=== PATIENT | female | born 1990 | race Caucasian/White ===

== ENCOUNTER 2018-04-04 11:59 | Emergency (ER) | payer OTHER ==
[2018-04-04] MEDS ORDERED: SODIUM CHLORIDE 0.9% 2,000 ML IV STA (12:30)
[2018-04-04] MEDS ORDERED: cefTRIAXone IN SWFI 2,000 MG/20 ML SYRINGE IVP STA (12:30)
[2018-04-04] MEDS ORDERED: MORPHINE SULFATE 4 MG/ML SYRINGE IV STA (12:30)
[2018-04-04] MEDS ORDERED: ONDANSETRON 4 MG/2 ML VIAL IVP STA ×2 (12:30→15:00)
[2018-04-04] MEDS ORDERED: SODIUM CHLORIDE 0.9% 1,000 ML IV STA (12:30)
[2018-04-04 13:17] LABS: Appearance,Urine Cloudy (Clear); Bilirubin,Urine Negative (Negative); Blood,Urine Negative (Negative); Color,Urine Yellow; Glucose,Urine (UA) Negative (Negative); Ketones,Urine Negative (Negative); Leukocyte Esterase,Urine Moderate (Negative); Mucus,Urine Many /hpf; Nitrite,Urine Negative (Negative); Protein,Urine 1+ (Negative); RBC,Urine 8 /hpf (0-5); Specific Gravity,Urine 1.026 (1.001-1.035); Squamous Epithelial Cell,Urine 32 /hpf (0-4); Urobilinogen,Urine <2.0 mg/dL (<2.0); WBC,Urine 7 /hpf (0-5)
[2018-04-04 13:43] LABS: ALT 62 U/L (9-52); AST 36 U/L (14-36); Albumin 4.5 g/dL (3.5-5.0); Alkaline Phosphatase 86 U/L (38-126); Amylase 44 U/L (30-110); Anion Gap 15 mmol/L; Basophils % (A) 0 %; Blood Urea Nitrogen 9 mg/dL (7-17); Calcium 9.4 mg/dL (8.4-10.2); Carbon Dioxide 26 mmol/L (22-30); Chloride 97 mmol/L (98-107); Eosinophils % (A) 0 %; Glucose 96 mg/dL (74-99); HCT 37.9 % (34.0-46.0); Lipase 56 U/L (23-300); Lymphocytes # (A) 0.7 k/uL (1.0-4.8); Lymphocytes % (A) 7 %; MCH 22.7 pg (25.0-35.0); MCHC 31.7 g/dL (31.0-37.0); MCV 71.6 fL (80.0-100.0); Mean Platelet Volume 7.8; Microcytosis Moderate; Monocytes # (A) 0.3 k/uL (0-1.0); Monocytes % (A) 3 %; Neutrophils # (A) 9.4 k/uL (1.3-7.7); Neutrophils % (A) 89 %; Platelet Count 333 k/uL (150-450); Potassium 3.8 mmol/L (3.5-5.1); RDW 14.6 % (11.5-15.5); Sodium 138 mmol/L (137-145); Total Bilirubin 0.5 mg/dL (0.2-1.3); Total Protein 7.6 g/dL (6.3-8.2); WBC 10.6 k/uL (3.8-10.6)
--- NOTE | 2018-04-04 13:45 | XR ---
EXAMINATION TYPE: XR KUB , 2 VIEWS DATE OF EXAM ORDERED: 04/04/2018 HISTORY: abdominal pain. COMPARISON: Previous study dated 09/22/2014. FINDINGS: The lung bases are clear. Within the abdomen, the abdominal gas pattern is normal. There is no evidence of obstruction or free air. No unusual calcifications are seen. IMPRESSION: NO ACUTE INTRA-ABDOMINAL ABNORMALITY.
[2018-04-04] MEDS ORDERED: RX INFO: IV CONTRAST WAS GIVEN 1 EACH MISC MISCELLANE PRN (13:53)
--- NOTE | 2018-04-04 14:15 | ED ---
Abdominal Pain HPI - General Chief Complaint: Abdominal Pain Stated Complaint: Abdominal pain Time Seen by Provider: 04/04/18 12:17 Source: patient Mode of arrival: ambulatory Limitations: no limitations - History of Present Illness Initial Comments: 27 years old female presents with abdominal pain pain is more so on the right upper quadrant area, epigastric and left upper quadrant area she also had a fever of 101 and she is quite tachycardic on arrival heart rate was 124 she is not complaining about chest pain or any pleuritic chest pain she also had diarrhea since last night she had the 8 loose stools since 5 PM yesterday vomited twice ,she is status post gallbladder surgery, she has a history of esophageal reflux disease she takes Prilosec for that she said she has been taking Prilosec religiously and has been taken or anxiety medication and depression Effexor as well. Review of system is otherwise unremarkable* - Related Data Home Medications Medication Instructions Recorded Confirmed Norethindrone AC-Eth Estradiol 1 tab PO DAILY 11/19/15 10/23/16 [Loestrin 21 1-20 Tablet] Lisinopril [Prinivil] 10 mg PO DAILY 10/23/16 10/23/16 Omeprazole 20 mg PO DAILY 10/23/16 10/23/16 Venlafaxine HCl ER [Effexor Xr] 150 mg PO DAILY 10/23/16 10/23/16 Previous Rx's Medication Instructions Recorded Ciprofloxacin HCl [Cipro] 500 mg PO Q12HR #14 tablet 04/04/18 Metoclopramide [Reglan] 10 mg PO ACHS #10 tab 04/04/18 Allergies Allergy/AdvReac Type Severity Reaction Status Date / Time Penicillins Allergy Rash/Hives Verified 04/04/18 12:17 Review of Systems ROS Statement: Those systems with pertinent positive or pertinent negative responses have been documented in the HPI. ROS Other: All systems not noted in ROS Statement are negative. Past Medical History Additional Past Medical History / Comment(s): Migraines History of Any Multi-Drug Resistant Organisms: MRSA Date of last positivie culture/infection: 05/18/16 MDRO Source:: RIGHT LEG Past Surgical History: Cholecystectomy Past Psychological History: Anxiety, Depression Smoking Status: Never smoker Past Alcohol Use History: Occasional Past Drug Use History: None Reported General Exam - General Exam Comments Initial Comments: General: The patient is awake and alert, in [id number] distress because of the abdominal pain Skin: Skin is warm and dry and no rashes or lesions are noted. Eye: Pupils are equal, round and reactive to light, extra-ocular movements are intact; there is normal conjunctiva bilaterally. Ears, nose, mouth and throat: There are moist mucous membranes and no oral lesions. Neck: The neck is supple, there is no tenderness or JVD. Cardiovascular: There is a regular rate and rhythm. No murmur, rub or gallop is appreciated. Respiratory: To auscultation bilateral, no wheezing no rhonchi no distress respiratory douglass noticed Gastrointestinal: Tender in the right upper quadrant area, epigastric area and left upper quadrant area Back: There is no tenderness to palpation in the midline. There is no obvious deformity. Musculoskeletal: Normal ROM, no tenderness, There is no pedal edema. There is no calf tenderness or swelling. No cords were appreciated. Neurological: CN II-XII intact, Cranial nerves III through XII are intact. There are no obvious motor or sensory deficits. Coordination appears grossly intact. Speech is normal. Psychiatric: Cooperative, appropriate mood & affect, normal judgment. Limitations: no limitations Course Vital Signs 04/04/18 04/04/18 12:14 14:47 Temperature 101.0 F H 100.8 F H Pulse Rate 124 H 110 H Respiratory 18 16 Rate Blood Pressure 129/85 156/87 O2 Sat by Pulse 100 99 Oximetry EKG is sinus tachycardia ventricular rate is 1 of 4 LA interval is 120 QRS duration is 80 QT/QTc is 340/447 review of this EKG shows some mom T-wave inversion in lead [address] elevation or ST depression noticed in the other leads Upon reassessment noticed that urinalysis is positive CBC is unremarkable surgery compressive metabolic panel she is not I KUB was unremarkable considering her severe pain and proceeded with the CT abdomen she was tender in the right upper quadrant area epigastric in the left upper quadrant area CT abdomen showed some mom metabolic stated ptosis oh and numb some collapse of the terminal ileum and now and ovarian cysts bilateral, she is not tender in the lower abdomen she is also tender on the flank area and there is a question of for a very high level causing the fever chills tachycardia and nausea. She was started on a Cipro 500 mg by mouth twice daily for next 10 days him on Reglan 10 mg by mouth every [address] Sales. She is advised come back if abdominal pain nausea vomiting and fever gets worse area this is also possibility of acute exacerbation of gastroesophageal reflux disease she will continue her PPIs and will advised her to increase the dose of the Prilosec and cysts if symptoms continue to bother hypertension Would be a good candidate for EGD she will follow with the Dr. Sales for the rate EGD if necessary Medical Decision Making - Lab Data Result diagrams: 04/04/18 13:15 04/04/18 13:15 Lab Results 04/04/18 04/04/18 04/04/18 Range/Units 13:05 13:05 13:15 WBC (3.8-10.6) k/uL RBC (3.80-5.40) m/uL Hgb (11.4-16.0) gm/dL Hct (34.0-46.0) % MCV (80.0-100.0) fL MCH (25.0-35.0) pg MCHC (31.0-37.0) g/dL RDW (11.5-15.5) % Plt Count (150-450) k/uL Neutrophils % % Lymphocytes % % Monocytes % % Eosinophils % % Basophils % % Neutrophils # (1.3-7.7) k/uL Lymphocytes # (1.0-4.8) k/uL Monocytes # (0-1.0) k/uL Eosinophils # (0-0.7) k/uL Basophils # (0-0.2) k/uL Microcytosis Sodium 138 (137-145) mmol/L Potassium 3.8 (3.5-5.1) mmol/L Chloride 97 L (98-107) mmol/L Carbon Dioxide 26 (22-30) mmol/L Anion Gap 15 mmol/L BUN 9 (7-17) mg/dL Creatinine 0.71 (0.52-1.04) mg/dL Est GFR (CKD-EPI)AfAm >90 (>60 ml/min/1.73 sqM) Est GFR (CKD-EPI)NonAf >90 (>60 ml/min/1.73 sqM) Glucose 96 (74-99) mg/dL Plasma Lactic Acid Mu (0.7-2.0) mmol/L Calcium 9.4 (8.4-10.2) mg/dL Total Bilirubin 0.5 (0.2-1.3) mg/dL AST 36 (14-36) U/L ALT 62 H (9-52) U/L Alkaline Phosphatase 86 (38-126) U/L Total Protein 7.6 (6.3-8.2) g/dL Albumin 4.5 (3.5-5.0) g/dL Amylase 44 (30-110) U/L Lipase 56 (23-300) U/L Urine Color Yellow Urine Appearance Cloudy H (Clear) Urine pH 6.0 (5.0-8.0) Ur Specific [place] 1.026 (1.001-1.035) Urine Protein 1+ H (Negative) Urine Glucose (UA) Negative (Negative) Urine Ketones Negative (Negative) Urine Blood Negative (Negative) Urine Nitrite Negative (Negative) Urine Bilirubin Negative (Negative) Urine Urobilinogen <2.0 (<2.0) mg/dL Ur Leukocyte Esterase Moderate H (Negative) Urine RBC 8 H (0-5) /hpf Urine WBC 7 H (0-5) /hpf Ur Squamous Epith Cells 32 H (0-4) /hpf Urine Mucus Many H (None) /hpf Urine HCG, Qual Not Detected (Not Detectd) 04/04/18 04/04/18 Range/Units 13:15 13:15 WBC 10.6 (3.8-10.6) k/uL RBC 5.30 (3.80-5.40) m/uL Hgb 12.0 (11.4-16.0) gm/dL Hct 37.9 (34.0-46.0) % MCV 71.6 L (80.0-100.0) fL MCH 22.7 L (25.0-35.0) pg MCHC 31.7 (31.0-37.0) g/dL RDW 14.6 (11.5-15.5) % Plt Count 333 (150-450) k/uL Neutrophils % 89 % Lymphocytes % 7 % Monocytes % 3 % Eosinophils % 0 % Basophils % 0 % Neutrophils # 9.4 H (1.3-7.7) k/uL Lymphocytes # 0.7 L (1.0-4.8) k/uL Monocytes # 0.3 (0-1.0) k/uL Eosinophils # 0.0 (0-0.7) k/uL Basophils # 0.0 (0-0.2) k/uL Microcytosis Moderate Sodium (137-145) mmol/L Potassium (3.5-5.1) mmol/L Chloride (98-107) mmol/L Carbon Dioxide (22-30) mmol/L Anion Gap mmol/L BUN (7-17) mg/dL Creatinine (0.52-1.04) mg/dL Est GFR (CKD-EPI)AfAm (>60 ml/min/1.73 sqM) Est GFR (CKD-EPI)NonAf (>60 ml/min/1.73 sqM) Glucose (74-99) mg/dL Plasma Lactic Acid Mu 1.0 (0.7-2.0) mmol/L Calcium (8.4-10.2) mg/dL Total Bilirubin (0.2-1.3) mg/dL AST (14-36) U/L ALT (9-52) U/L Alkaline Phosphatase (38-126) U/L Total Protein (6.3-8.2) g/dL Albumin (3.5-5.0) g/dL Amylase (30-110) U/L Lipase (23-300) U/L Urine Color Urine Appearance (Clear) Urine pH (5.0-8.0) Ur Specific [place] (1.001-1.035) Urine Protein (Negative) Urine Glucose (UA) (Negative) Urine Ketones (Negative) Urine Blood (Negative) Urine Nitrite (Negative) Urine Bilirubin (Negative) Urine Urobilinogen (<2.0) mg/dL Ur Leukocyte Esterase (Negative) Urine RBC (0-5) /hpf Urine WBC (0-5) /hpf Ur Squamous Epith Cells (0-4) /hpf Urine Mucus (None) /hpf Urine HCG, Qual (Not Detectd) Disposition Clinical Impression: Fever, Tachycardia, Abdominal pain, Hepatic steatosis, Ovarian cyst, Pyelonephritis Disposition: HOME SELF-CARE Condition: Good Instructions: Abdominal Pain (ED) Prescriptions: Ciprofloxacin HCl [Cipro] 500 mg PO Q12HR #14 tablet Metoclopramide [Reglan] 10 mg PO ACHS #10 tab Is patient prescribed a controlled substance at d/c from ED?: No If prescribed controlled substance>3 days was MAPS reviewed?: No When asked, does pt state using other controlled substances?: No Referrals: Souphis,Simon, DO [Primary Care Provider] - 1-2 days
--- NOTE | 2018-04-04 14:50 | CT ---
EXAMINATION TYPE: CT abdomen pelvis w con DATE OF EXAM: 04/04/2018 HISTORY: Patient complains of epigastric pain, nausea, vomiting, and diarrhea. CT DLP: 1989mGycm Automated Exposure Control for Dose Reduction was Utilized. CONTRAST: CT scan of the abdomen and pelvis is performed with IV Contrast, patient injected with 100 mL of Isov ue 370. COMPARISON: None. FINDINGS: LUNG BASES: There is minimal bibasilar subsegmental dependent atelectasis. LIVER/GB: There is diffuse hypoattenuation of the hepatic parenchyma, most commonly related to hepati c steatosis. More focal geographic wedge-shaped area of hypoattenuation is seen near the fissure for the falciform ligament. Gallbladder appears surgically absent without radiopaque clips in the gallbla dder fossa. PANCREAS: No significant abnormality is seen. No ductal dilatation. No abnormal enhancement. SPLEEN: No significant abnormality is seen. Small splenules are present in the campo spleen. ADRENALS: No nodularity or thickening is seen. KIDNEYS: No hydronephrosis or nephrolithiasis. Kidneys enhance symmetrically. BOWEL: The appendix is within normal limits of size without periappendiceal fat stranding. Terminal i leum is decompressed, limiting evaluation for focal thickening as does the lack of oral contrast. No evidence of dilated large or small bowel. UTERUS/ADNEXA: Low-attenuation in the endometrium likely relates to the phase of menses. Right adnexa l lesion measures 3.6 cm and left measures 2.6 cm. LYMPH NODES: No greater than 1cm abdominal or pelvic lymph nodes are appreciated. OSSEOUS STRUCTURES: No significant abnormality is seen. OTHER: There is small fat filled umbilical hernia is present. IMPRESSION: 1. Bilateral adnexal lesions measuring 3.6 on the right and 2.6 on the left. These may relate to ovar frieda cysts. If there is further concern, ultrasound could be performed. 2. No CT evidence of appendicitis or bowel obstruction. 3. Hepatic steatosis.
[2018-04-04] MEDS ORDERED: MORPHINE SULFATE 4 MG/ML SYRINGE IVP STA (15:00)
[2018-04-04] MEDS ORDERED: ACETAMINOPHEN TAB 500 MG TAB PO STA (15:00)
[2018-04-04] MEDS ORDERED: PANTOPRAZOLE 40 MG/10 ML VIAL IVP STA (15:01)
[2018-04-04 16:12] VITALS: BP 147/72; PULSE 105; RESP 18; TEMP 99.4
== END 2018-04-04 15:52 | disposition home or self-care (01) ==
LOC: EC 11:59
DX: N12 Tubulo-interstitial nephritis, not specified as acute or chronic (principal); N83.209 Unspecified ovarian cyst, unspecified side; K76.0 Fatty (change of) liver, not elsewhere classified; R00.0 Tachycardia, unspecified; K21.9 Gastro-esophageal reflux disease without esophagitis; F32.9 Major depressive disorder, single episode, unspecified; F41.9 Anxiety disorder, unspecified; Z79.3 Long term (current) use of hormonal contraceptives; Z79.899 Other long term (current) drug therapy; Z88.0 Allergy status to penicillin; Z86.14 Personal history of Methicillin resistant Staphylococcus aureus infection; Z90.49 Acquired absence of other specified parts of digestive tract
CPT/HCPCS: 99284; 96374; 96375 ×3; 96376 ×2; 96361 ×3; 36415; 80053; 82150; 83605; 83690; 85025; 81001; 81025; 87040; 74018; 74177; J2270; J2405; J0696; C9113; Q9967

== ENCOUNTER 2019-11-14 19:46 | Emergency (ER) | payer BC, OTHER ==
[2019-11-14] MEDS ORDERED: LABETALOL 5 MG/ML VIAL MDV IVP STA (20:46)
[2019-11-14 21:16] LABS: Anisocytosis Slight; Basophils # (A) 0.1 k/uL (0-0.2); Basophils % (A) 1 %; Eosinophils # (A) 0.1 k/uL (0-0.7); Eosinophils % (A) 1 %; HGB 10.2 gm/dL (11.4-16.0); Hypochromasia Slight; Lymphocytes # (A) 2.7 k/uL (1.0-4.8); Lymphocytes % (A) 27 %; MCH 21.3 pg (25.0-35.0); MCHC 30.9 g/dL (31.0-37.0); MCV 68.9 fL (80.0-100.0); Mean Platelet Volume 9.4; Microcytosis Marked; Monocytes # (A) 0.4 k/uL (0-1.0); Monocytes % (A) 4 %; Neutrophils # (A) 6.4 k/uL (1.3-7.7); Neutrophils % (A) 65 %; Platelet Count 256 k/uL (150-450); RBC 4.79 m/uL (3.80-5.40); RDW 16.4 % (11.5-15.5); WBC 9.9 k/uL (3.8-10.6)
[2019-11-14 21:25] LABS: ALT 16 U/L (4-34); AST 22 U/L (14-36); African American GFR (CKD) >90 (>60 ml/min/1.73 sqM); Albumin 3.9 g/dL (3.5-5.0); Alkaline Phosphatase 73 U/L (38-126); Anion Gap 9 mmol/L; Blood Urea Nitrogen 6 mg/dL (7-17); Calcium 9.9 mg/dL (8.4-10.2); Carbon Dioxide 23 mmol/L (22-30); Chloride 103 mmol/L (98-107); Glucose 94 mg/dL (74-99); Non-African American GFR(CKD) >90 (>60 ml/min/1.73 sqM); Potassium 3.6 mmol/L (3.5-5.1); Sodium 135 mmol/L (137-145); Total Bilirubin 0.4 mg/dL (0.2-1.3); Total Protein 7.2 g/dL (6.3-8.2)
[2019-11-14 21:27] LABS: INR 0.9 (<1.2); Partial Thromboplastin Time 23.2 sec (22.0-30.0); Prothrombin Time 9.7 sec (9.0-12.0)
[2019-11-14 21:42] LABS: HCG,Quantitative Serum 11845.6 mIU/mL
[2019-11-14 21:52] VITALS: TEMP 99.2
--- NOTE | 2019-11-14 21:56 | ED ---
Female Urogenital HPI - General Chief complaint: Urogenital Stated complaint: Vaginal Bleeding-18 wks Time Seen by Provider: 11/14/19 20:32 Source: patient Mode of arrival: ambulatory Limitations: no limitations - History of Present Illness Initial comments: 29-year-old female history of hypertension currently not on medications presents today for chief complaint of vaginal bleeding and . patient is currently 18 weeks and sees [employer] Dr. Simon. She states that yesterday evening she had "rough sex". She states she is not bleeding at that time however about an hour prior to arrival she felt like she tightness in the lower abdomen and began to have mild to moderate vaginal bleeding. She states this is bright red. Patient states she also thought she was lifting heavier exact work than she should have. Patient denies any direct abdominal trauma. Patient denies any severe abdominal pain or back pain. Patient denies any nausea vomiting fevers dysuria urgency frequency extremity edema headaches visual changes or any other complaints. Patient appears well on arrival, but slightly anxious stating she is nervous she is bleeding. She is found to have initial elevated BP reading. - Related Data Home Medications Medication Instructions Recorded Confirmed Norethindrone AC-Eth Estradiol 1 tab PO DAILY 11/19/15 10/23/16 [Loestrin 21 1-20 Tablet] Lisinopril [Prinivil] 10 mg PO DAILY 10/23/16 10/23/16 Omeprazole 20 mg PO DAILY 10/23/16 10/23/16 Venlafaxine HCl ER [Effexor Xr] 150 mg PO DAILY 10/23/16 10/23/16 Previous Rx's Medication Instructions Recorded Ciprofloxacin HCl [Cipro] 500 mg PO Q12HR #14 tablet 04/04/18 Metoclopramide [Reglan] 10 mg PO ACHS #10 tab 04/04/18 Labetalol [Trandate] 100 mg PO BID 7 Days #14 tablet 11/14/19 Allergies Allergy/AdvReac Type Severity Reaction Status Date / Time Penicillins Allergy Rash/Hives Verified 11/14/19 19:54 Review of Systems ROS Statement: Those systems with pertinent positive or pertinent negative responses have been documented in the HPI. ROS Other: All systems not noted in ROS Statement are negative. Past Medical History Additional Past Medical History / Comment(s): Migraines History of Any Multi-Drug Resistant Organisms: MRSA Date of last positivie culture/infection: 05/18/16 MDRO Source:: RIGHT LEG Past Surgical History: Cholecystectomy Past Psychological History: Anxiety, Depression Smoking Status: Never smoker Past Alcohol Use History: Occasional Past Drug Use History: None Reported General Exam - General Exam Comments Initial Comments: General: The patient is awake and alert, in no distress Eye: +3 mm pupils are equal, round and reactive to light, extra-ocular movements are intact. No nystagmus. There is normal conjunctiva bilaterally. No signs of icterus. Ears, nose, mouth and throat: There are moist mucous membranes and no oral lesions. Neck: The neck is supple, there is no tenderness or JVD. Cardiovascular: There is a regular rate and rhythm. No murmur, rub or gallop is appreciated. Respiratory: Lungs are clear to auscultation, respirations are non-labored, breath sounds are equal. No wheezes, stridor, rales, or rhonchi. Gastrointestinal: Soft, non-distended, non-tender abdomen without masses or organomegaly noted. There is no rebound or guarding present. Pelvic, os closed. No cerival motion or adnexal tenderness. Scant amount of bright red blood no severe bleeding noted. appears mild. Musculoskeletal: Normal ROM, no tenderness. Strength 5/5. Sensation intact. Radial pulses equal bilaterally 2+. Neurological: A&O x 3. CN II-XII intact, There are no obvious motor or sensory deficits. Coordination appears grossly intact. Speech is normal. Skin: Skin is warm and dry and no rashes or lesions are noted. No extremity edema. Psychiatric: Cooperative, appropriate mood & affect, normal judgment. Limitations: no limitations Course Vital Signs 11/14/19 11/14/19 11/14/19 19:50 20:56 21:51 Temperature 97.7 F 99.2 F Pulse Rate 108 H 89 Respiratory 18 18 Rate Blood Pressure 170/123 149/96 147/91 O2 Sat by Pulse 100 96 Oximetry 11/14/19 11/14/19 22:19 22:43 Temperature Pulse Rate 77 Respiratory 16 Rate Blood Pressure 131/84 139/81 O2 Sat by Pulse 100 Oximetry Medical Decision Making - Medical Decision Making 29-year-old female presents emergency department for vaginal bleeding. Patient is found to have elevated blood pressure. Patient states she does have history of elevated blood pressure in the past. I contacted patient [employer] prior to results stating reason for visit discussing blood pressure. He recommended if it remained elevated to give labetalol 100 mg by mouth. Patient blood pressure reduced to 130/84. Patient denies pain, pelvic mild bleeding. US no complicating process of . Labs reveal mild decreased in HgB discussed this as well as protein in urine with [employer], platelets normal, BP normalized. He recommended that patient have pelvic rest as we feel sex may be a cause of bleeding. I discussed the importance of blood pressure management and recommend patient obtained cough Dr. Simon recommend patient be prescribed labetalol 100 mg by mouth twice a day as needed for elevated blood pressure. She is to follow-up in office for anatomy scan as scheduled next week. Return parameters including increasing or worsening vaginal bleeding or pelvic pain were discussed at length the patient verbalized understanding and was discharged appearing well. Case discussed with attending Dr. Wilson - Lab Data Result diagrams: 11/14/19 20:52 11/14/19 20:52 Lab Results 11/14/19 11/14/19 11/14/19 Range/Units 20:52 20:52 20:52 WBC 9.9 (3.8-10.6) k/uL RBC 4.79 (3.80-5.40) m/uL Hgb 10.2 L (11.4-16.0) gm/dL Hct 33.0 L (34.0-46.0) % MCV 68.9 L (80.0-100.0) fL MCH 21.3 L (25.0-35.0) pg MCHC 30.9 L (31.0-37.0) g/dL RDW 16.4 H (11.5-15.5) % Plt Count 256 (150-450) k/uL Neutrophils % 65 % Lymphocytes % 27 % Monocytes % 4 % Eosinophils % 1 % Basophils % 1 % Neutrophils # 6.4 (1.3-7.7) k/uL Lymphocytes # 2.7 (1.0-4.8) k/uL Monocytes # 0.4 (0-1.0) k/uL Eosinophils # 0.1 (0-0.7) k/uL Basophils # 0.1 (0-0.2) k/uL Hypochromasia Slight Anisocytosis Slight Microcytosis Marked PT (9.0-12.0) sec INR (<1.2) APTT (22.0-30.0) sec Sodium 135 L (137-145) mmol/L Potassium 3.6 (3.5-5.1) mmol/L Chloride 103 (98-107) mmol/L Carbon Dioxide 23 (22-30) mmol/L Anion Gap 9 mmol/L BUN 6 L (7-17) mg/dL Creatinine 0.59 (0.52-1.04) mg/dL Est GFR (CKD-EPI)AfAm >90 (>60 ml/min/1.73 sqM) Est GFR (CKD-EPI)NonAf >90 (>60 ml/min/1.73 sqM) Glucose 94 (74-99) mg/dL Calcium 9.9 (8.4-10.2) mg/dL Total Bilirubin 0.4 (0.2-1.3) mg/dL AST 22 (14-36) U/L ALT 16 (4-34) U/L Alkaline Phosphatase 73 (38-126) U/L Total Protein 7.2 (6.3-8.2) g/dL Albumin 3.9 (3.5-5.0) g/dL HCG, Quant 91127.6 mIU/mL Urine Color Urine Appearance (Clear) Urine pH (5.0-8.0) Ur Specific [place] (1.001-1.035) Urine Protein (Negative) Urine Glucose (UA) (Negative) Urine Ketones (Negative) Urine Blood (Negative) Urine Nitrite (Negative) Urine Bilirubin (Negative) Urine Urobilinogen (<2.0) mg/dL Ur Leukocyte Esterase (Negative) Urine RBC (0-5) /hpf Urine WBC (0-5) /hpf Ur Squamous Epith Cells (0-4) /hpf Urine Bacteria (None) /hpf Cellular Casts (0) /lpf Hyaline Casts (0-2) /lpf Granular Casts (0) /lpf Urine Mucus (None) /hpf Trichomonas Ag (Rapid) (Negative) Blood Type O Positive Blood Type Recheck O Pos Bld Type Recheck Status No 11/14/19 11/14/19 11/14/19 Range/Units 20:52 20:52 22:20 WBC (3.8-10.6) k/uL RBC (3.80-5.40) m/uL Hgb (11.4-16.0) gm/dL Hct (34.0-46.0) % MCV (80.0-100.0) fL MCH (25.0-35.0) pg MCHC (31.0-37.0) g/dL RDW (11.5-15.5) % Plt Count (150-450) k/uL Neutrophils % % Lymphocytes % % Monocytes % % Eosinophils % % Basophils % % Neutrophils # (1.3-7.7) k/uL Lymphocytes # (1.0-4.8) k/uL Monocytes # (0-1.0) k/uL Eosinophils # (0-0.7) k/uL Basophils # (0-0.2) k/uL Hypochromasia Anisocytosis Microcytosis PT 9.7 (9.0-12.0) sec INR 0.9 (<1.2) APTT 23.2 (22.0-30.0) sec Sodium (137-145) mmol/L Potassium (3.5-5.1) mmol/L Chloride (98-107) mmol/L Carbon Dioxide (22-30) mmol/L Anion Gap mmol/L BUN (7-17) mg/dL Creatinine (0.52-1.04) mg/dL Est GFR (CKD-EPI)AfAm (>60 ml/min/1.73 sqM) Est GFR (CKD-EPI)NonAf (>60 ml/min/1.73 sqM) Glucose (74-99) mg/dL Calcium (8.4-10.2) mg/dL Total Bilirubin (0.2-1.3) mg/dL AST (14-36) U/L ALT (4-34) U/L Alkaline Phosphatase (38-126) U/L Total Protein (6.3-8.2) g/dL Albumin (3.5-5.0) g/dL HCG, Quant mIU/mL Urine Color Yellow Urine Appearance Cloudy H (Clear) Urine pH 6.0 (5.0-8.0) Ur Specific [place] 1.031 (1.001-1.035) Urine Protein 2+ H (Negative) Urine Glucose (UA) Negative (Negative) Urine Ketones Trace H (Negative) Urine Blood Large H (Negative) Urine Nitrite Negative (Negative) Urine Bilirubin Negative (Negative) Urine Urobilinogen <2.0 (<2.0) mg/dL Ur Leukocyte Esterase Negative (Negative) Urine RBC 31 H (0-5) /hpf Urine WBC 6 H (0-5) /hpf Ur Squamous Epith Cells 10 H (0-4) /hpf Urine Bacteria Occasional H (None) /hpf Cellular Casts 2 (0) /lpf Hyaline Casts 2 (0-2) /lpf Granular Casts 5 (0) /lpf Urine Mucus Many H (None) /hpf Trichomonas Ag (Rapid) Negative (Negative) Blood Type Blood Type Recheck Bld Type Recheck Status Disposition Clinical Impression: Vaginal bleeding during , Elevated blood pressure reading Disposition: HOME SELF-CARE Condition: Good Instructions (If sedation given, give patient instructions): Threatened Miscarriage (ED), Non-Threatening First Trimester Vaginal Bleed (ED) Additional Instructions: Please use medication as discussed. Please follow-up with Dr. Covington next week, PELVIC REST-NO SEX. Please return to emergency room if the symptoms increase or worsen or for any other concerns-pain, increasing or persistent bleeding, headaches, extremity swelling. Prescriptions: Labetalol [Trandate] 100 mg PO BID 7 Days #14 tablet Is patient prescribed a controlled substance at d/c from ED?: No Referrals: Simon Sales DO [Primary Care Provider] - 1-2 days Nolberto Simon MD [STAFF PHYSICIAN] - 11/21/19 Time of Disposition: 22:28
[2019-11-14 21:57] LABS: Appearance,Urine Cloudy (Clear); Bacteria,Urine Occasional /hpf; Bilirubin,Urine Negative (Negative); Blood,Urine Large (Negative); Cellular Casts,Urine 2 /lpf (0); Color,Urine Yellow; Glucose,Urine (UA) Negative (Negative); Granular Casts,Urine 5 /lpf (0); Hyaline Casts,Urine 2 /lpf (0-2); Ketones,Urine Trace (Negative); Leukocyte Esterase,Urine Negative (Negative); Mucus,Urine Many /hpf; Nitrite,Urine Negative (Negative); Protein,Urine 2+ (Negative); RBC,Urine 31 /hpf (0-5); Specific Gravity,Urine 1.031 (1.001-1.035); Squamous Epithelial Cell,Urine 10 /hpf (0-4); Urobilinogen,Urine <2.0 mg/dL (<2.0); WBC,Urine 6 /hpf (0-5)
[2019-11-14] MEDS ORDERED: LABETALOL 100 MG TAB PO SCH (22:00)
--- NOTE | 2019-11-14 22:19 | US ---
EXAMINATION TYPE: US OB >= 14 wk fetus DATE OF EXAM: 11/14/2019 COMPARISON: CT 2018 CLINICAL HISTORY: bleeding in pregnancyBleeding in x 2.5 hours. . TECHNIQUE: Transabdominal (TA) GESTATIONAL AGE / DATING Physician Established: (18 weeks/3 days) EDC: 04/13/2020 Dates by LMP: Unknown Dates by First Scan: This is first scan Dates by Current Scan: (18 weeks/4 days) EDC: 04/12/2020 Beta HCG (if available): 11,845.6 SURVEY IUP: Single PLACENTA: Posterior PREVIA: Not seen JACOB: 14.53 cm Normal CERVICAL LENGTH (transabdominal: norm > 3.0cm): 3.95 cm BIOMETRY PRESENTATION: Breech BPD: 4.19 cm 18 weeks / 5 days HC: 15.87 cm 18 weeks / 5 days AC: 13.18 cm 18 weeks / 5 days FL: 2.80 cm 18 weeks / 4 days ESTIMATED WEIGHT IN GRAMS: 250.00 grams ESTIMATED WEIGHT IN LBS/OZ: 0 lbs. 9 oz. WEIGHT PERCENTAGE BASED ON ESTABLISHED DATES: 58.6% HC/AC: 1.20 Normal FL/AC: 21.21 HEART RATE: 158 bpm RHYTHM: Normal IMPRESSION: No complicating process seen.
[2019-11-14 22:47] VITALS: BP 139/81; PULSE 77; RESP 16
[2019-11-15 13:29] LABS: N. gonorrhoeae,PCR Negative (Neg,Equiv); Neisseria Source Vagina
[2019-11-15 13:58] LABS: C. trachomatis,PCR Negative (Neg,Equiv); Chlamydia trachomatis Source Vagina
== END 2019-11-14 22:48 | disposition home or self-care (01) ==
LOC: EC 19:46
DX: O46.92 Antepartum hemorrhage, unspecified, second trimester (principal); O99.89 Other specified diseases and conditions complicating pregnancy, childbirth and the puerperium; R03.0 Elevated blood-pressure reading, without diagnosis of hypertension; O12.12 Gestational proteinuria, second trimester; O99.342 Other mental disorders complicating pregnancy, second trimester; F41.9 Anxiety disorder, unspecified; F32.9 Major depressive disorder, single episode, unspecified; Z3A.18 18 weeks gestation of pregnancy; Z79.3 Long term (current) use of hormonal contraceptives; Z79.899 Other long term (current) drug therapy; Z88.0 Allergy status to penicillin; Z86.14 Personal history of Methicillin resistant Staphylococcus aureus infection
CPT/HCPCS: 36415; 76805; 80053; 81001; 84702; 85025; 85610; 85730; 86900; 86901; 87070; 87491; 87591; 87808; 99284

== ENCOUNTER 2020-03-06 08:45 | Outpatient (CLI) | payer BC ==
[2020-03-06] MEDS ORDERED: LABETALOL 5 MG/ML VIAL MDV IVP PRN ×3 (09:27)
[2020-03-06] MEDS ORDERED: hydrALAZINE HCL 20 MG/ML 1 ML VIAL IVP PRN (09:27)
[2020-03-06] MEDS ORDERED: LACTATED RINGERS 1,000 ML IV SCH (09:30)
[2020-03-06 10:03] LABS: Anisocytosis Slight; Basophils % (A) 0 %; Eosinophils # (A) 0.1 k/uL (0-0.7); Eosinophils % (A) 1 %; HGB 9.6 gm/dL (11.4-16.0); Hypochromasia Marked; Lymphocytes # (A) 1.7 k/uL (1.0-4.8); Lymphocytes % (A) 19 %; MCH 20.8 pg (25.0-35.0); MCHC 30.8 g/dL (31.0-37.0); MCV 67.6 fL (80.0-100.0); Microcytosis Marked; Monocytes # (A) 0.4 k/uL (0-1.0); Monocytes % (A) 4 %; Neutrophils # (A) 6.7 k/uL (1.3-7.7); Neutrophils % (A) 75 %; Platelet Count 226 k/uL (150-450); RBC 4.59 m/uL (3.80-5.40)
[2020-03-06 10:11] LABS: ALT 16 U/L (4-34); AST 43 U/L (14-36); African American GFR (CKD) >90 (>60 ml/min/1.73 sqM); Blood Urea Nitrogen 12 mg/dL (7-17); LDH 930 U/L (313-618); Non-African American GFR(CKD) >90 (>60 ml/min/1.73 sqM); Uric Acid 6.2 mg/dL (3.7-7.4)
[2020-03-06 10:13] LABS: Appearance,Urine Cloudy (Clear); Bacteria,Urine Occasional /hpf; Bilirubin,Urine Negative (Negative); Blood,Urine Small (Negative); Color,Urine Light Red; Glucose,Urine (UA) Negative (Negative); Ketones,Urine Negative (Negative); Leukocyte Esterase,Urine Negative (Negative); Mucus,Urine Many /hpf; Nitrite,Urine Negative (Negative); PH, Urine 6.5 (5.0-8.0); Protein,Urine 4+ (Negative); RBC,Urine 4 /hpf (0-5); Squamous Epithelial Cell,Urine 34 /hpf (0-4); Urobilinogen,Urine <2.0 mg/dL (<2.0); WBC,Urine 23 /hpf (0-5)
[2020-03-06] MEDS ORDERED: MAGNESIUM SULFATE-WATER PMX 4 GM in WATER FOR INJECTION 1 100ML.BAG IVPB ONE (10:30)
[2020-03-06] MEDS ORDERED: MAGNESIUM SULFATE-WATER PMX 20 GM in WATER FOR INJECTION 1 500ML.BAG IV SCH (10:30)
[2020-03-06] MEDS ORDERED: BETAMET ACET-BETAMETH SOD PHOS 6 MG/ML VIAL IM SCH (10:45)
[2020-03-06 11:37] VITALS: BP 197/123; PULSE 74; RESP 16; TEMP 97.2
--- NOTE | 2020-03-06 11:45 | P.HPOB ---
History of Present Illness H&P Date: 03/06/20 Chief Complaint: 34-4/7 weeks, preeclampsia with severe features The patient is a 29-year-old 1 para 0 admitted at 34-4/7 weeks by good dating parameters. She is admitted to triage with complaints of contractions at which time she was found with the opening blood pressure of approximately 190/123. Contractions were occasional and there was no signs or symptoms of labor. Heart tones were category 1 and reassuring. She required 3 subsequent doses of labetalol to bring her pressure into a more reasonable range. Laboratory workup demonstrated an elevated LDH, elevated AST, and 4+ protein in her urine. Platelet count was within normal limits. Given these findings, the diagnosis of preeclampsia was severe features was made and the patient was started with betamethasone 12.5 mg intramuscularly to be repeated in 24 hours as well as magnesium sulfate, 4 g IV loading dose followed by 2 g per hour. Arrangements have been made to transfer the patient to a tertiary care center for concerns. The patient's cervix has found to be closed and thick. She was found at her 19 week ultrasound to have a reasonably large placental Rojas has been undergoing testing with weekly NSTs since 32 weeks, all of which have been category 1 and reassuring. Obstetrical history: 1 para 0 with current statistics listed in history of present illness. Please refer to the record for EDC and how it was determined as well as all laboratory workup. Gynecologic history: Unremarkable with no history of any infections to include STDs. Review of Systems Review of systems is confined to history of present illness. Past Medical History Additional Past Medical History / Comment(s): Migraines History of Any Multi-Drug Resistant Organisms: MRSA Date of last positivie culture/infection: 05/18/16 MDRO Source:: RIGHT LEG Past Surgical History: Cholecystectomy Smoking Status: Never smoker Medications and Allergies Home Medications Medication Instructions Recorded Confirmed Type Omeprazole 20 mg PO DAILY 10/23/16 03/06/20 History Venlafaxine HCl ER [Effexor Xr] 150 mg PO DAILY 10/23/16 03/06/20 History metFORMIN HCL [Glucophage] 1 tab PO DAILY 03/06/20 03/06/20 History Allergies Allergy/AdvReac Type Severity Reaction Status Date / Time Penicillins Allergy Rash/Hives Verified 03/06/20 09:24 Exam Vital Signs Temp Pulse Resp BP 03/06/20 08:54 97.2 F L 74 16 197/123 Intake and Output 03/05/20 03/06/20 03/06/20 22:59 06:59 14:59 Other: Weight 113.398 kg In general, this is a mild to moderately obese white female in no acute distress. Her heart has a regular rhythm and rate without murmur. Her lungs are clear to auscultation bilaterally in all moss. Her abdomen is gravid, nondistended, has normal active bowel sounds, soft, nontender, and without any palpable masses aside from uterine fundus. Her extremities are without any cyanosis, clubbing, or significant edema and are nontender to palpation bilaterally. Deep tendon reflexes are relatively within normal limits. Digital cervical examination performed by the nursing staff demonstrates her cervix to be closed, thick, and high with the vertex in presentation. Results Result Diagrams: 03/06/20 09:42 03/06/20 09:42 Abnormal Lab Results - Last 24 Hours (Table) 03/06/20 03/06/20 03/06/20 Range/Units 09:42 09:42 09:42 Hgb 9.6 L (11.4-16.0) gm/dL Hct 31.0 L (34.0-46.0) % MCV 67.6 L (80.0-100.0) fL MCH 20.8 L (25.0-35.0) pg MCHC 30.8 L (31.0-37.0) g/dL RDW 17.0 H (11.5-15.5) % Fibrinogen 626 H (200-500) mg/dL AST 43 H (14-36) U/L Lactate Dehydrogenase 930 H (313-618) U/L Urine Appearance (Clear) Ur Specific [place] (1.001-1.035) Urine Protein (Negative) Urine Blood (Negative) Urine WBC (0-5) /hpf Ur Squamous Epith Cells (0-4) /hpf Urine Bacteria (None) /hpf Urine Mucus (None) /hpf 03/06/20 Range/Units 09:54 Hgb (11.4-16.0) gm/dL Hct (34.0-46.0) % MCV (80.0-100.0) fL MCH (25.0-35.0) pg MCHC (31.0-37.0) g/dL RDW (11.5-15.5) % Fibrinogen (200-500) mg/dL AST (14-36) U/L Lactate Dehydrogenase (313-618) U/L Urine Appearance Cloudy H (Clear) Ur Specific [place] 1.050 H (1.001-1.035) Urine Protein 4+ H (Negative) Urine Blood Small H (Negative) Urine WBC 23 H (0-5) /hpf Ur Squamous Epith Cells 34 H (0-4) /hpf Urine Bacteria Occasional H (None) /hpf Urine Mucus Many H (None) /hpf Assessment and Plan (1) Preeclampsia Current Visit: Yes Status: Acute Code(s): O14.90 - UNSPECIFIED PRE- ECLAMPSIA, UNSPECIFIED TRIMESTER SNOMED Code(s): 248828775 (2) with 34 completed weeks gestation Current Visit: Yes Status: Acute Code(s): Z3A.34 - 34 WEEKS GESTATION OF SNOMED Code(s): 35030685 Plan: I had a long discussion with the patient and her partner regarding the diagnosis and the likely need for delivery within the next 24-48 hours. As our pediatric unit cannot manage infants under 35 weeks of gestation, the patient requires transfer to a tertiary care center. As noted above, magnesium sulfate has been started for seizure prophylaxis as well as neuro protection for the fetus. Additionally she has had the first dose of betamethasone. A Hand catheter has been placed to carefully track input and output. I have discussed the case with at [facility] [place] in [place] who has accepted the transfer. Preparations are being made at this time for transfer by ambulance.
== END 2020-03-06 12:17 ==
LOC: FBPOP 08:45
PROVIDERS: ATTEND Obstetrics & Gynecology
DX: O14.93 Unspecified pre-eclampsia, third trimester (principal); Z3A.34 34 weeks gestation of pregnancy; Z79.899 Other long term (current) drug therapy; Z79.52 Long term (current) use of systemic steroids; Z79.84 Long term (current) use of oral hypoglycemic drugs; Z88.0 Allergy status to penicillin
CPT/HCPCS: 59025; 99215; 96365; 96366; 96367; 96375; 82570; 84156; 82565; 83615; 84450; 84460; 84520; 84550; 85025; 85384; 81001; J0702; J3475 ×2

== ENCOUNTER 2020-06-07 15:44 | Emergency (ER) | payer BC ==
[2020-06-07 15:49] VITALS: RESP 18; TEMP 98.8
[2020-06-07] MEDS ORDERED: hydrALAZINE HCL 20 MG/ML 1 ML VIAL IVP STA (16:18)
[2020-06-07] MEDS ORDERED: hydrALAZINE HCL 50 MG TAB PO STA (16:28)
--- NOTE | 2020-06-07 16:36 | ED ---
General Adult HPI - General Chief complaint: Headache Stated complaint: Hypertension Time Seen by Provider: 06/07/20 16:01 Source: patient, family Mode of arrival: ambulatory Limitations: no limitations - History of Present Illness Initial comments: Patient is a 29-year-old female presenting to the emergency room with a chief complaint of high blood pressure. Patient states she is 3 months and about 1.5 months ago she was taken off her blood pressure medication, Procardia, by her OB, Dr Covington. Patient states her PCP was not aware of this. Patient states she has been on blood pressure medication for several years prior to this. States she was on Procardia during her as well. States she went to her PCP today after she developed a headache yesterday. She had a systolic blood pressure of 170 and was advised to come to the emergency department. Patient does have history of migraines and this one feels somewhat like it. Although, patient denies photophobia but does report nausea. She states this is a left-sided headache. This was a gradual onset is not the worst headache of her life. Patient denies any abdominal pain, chest pain, shortness of breath or hematuria. States she is going back to see her primary care in 1 week.. - Related Data Home Medications Medication Instructions Recorded Confirmed Omeprazole 20 mg PO DAILY 10/23/16 06/08/20 Norethindrone-E.estradiol-Iron 1 tab PO DAILY 06/07/20 06/08/20 [Junel Fe 24 Tablet] Venlafaxine HCl [Effexor XR] 37.5 mg PO DAILY 06/07/20 06/08/20 Previous Rx's Medication Instructions Recorded NIFEdipine XL [Procardia Xl] 60 mg PO DAILY #30 tab 06/07/20 Allergies Allergy/AdvReac Type Severity Reaction Status Date / Time Penicillins Allergy Rash/Hives Verified 06/08/20 14:00 Review of Systems ROS Statement: Those systems with pertinent positive or pertinent negative responses have been documented in the HPI. ROS Other: All systems not noted in ROS Statement are negative. Past Medical History Additional Past Medical History / Comment(s): Migraines, pre eclampsia History of Any Multi-Drug Resistant Organisms: MRSA Date of last positivie culture/infection: 05/18/16 MDRO Source:: RIGHT LEG Past Surgical History: Section, Cholecystectomy Past Psychological History: Anxiety, Depression Smoking Status: Never smoker Past Alcohol Use History: Occasional Past Drug Use History: None Reported General Exam Limitations: no limitations General appearance: alert, in no apparent distress, obese Head exam: Present: atraumatic, normocephalic, normal inspection Eye exam: Present: normal appearance, PERRL, EOMI Pupils: Present: normal accommodation ENT exam: Present: normal exam, normal oropharynx, mucous membranes moist, TM's normal bilaterally, normal external ear exam Neck exam: Present: normal inspection, full ROM. Absent: tenderness Respiratory exam: Present: normal lung sounds bilaterally. Absent: respiratory distress, wheezes Course Vital Signs 06/07/20 06/07/20 06/07/20 15:46 16:13 16:58 Temperature 98.8 F Pulse Rate 84 88 81 Respiratory 18 18 18 Rate Blood Pressure 179/104 178/107 147/102 O2 Sat by Pulse 100 100 99 Oximetry 06/07/20 06/07/20 06/07/20 17:00 17:30 17:53 Temperature Pulse Rate 88 Respiratory 18 18 Rate Blood Pressure 147/102 150/104 145/93 O2 Sat by Pulse 100 100 99 Oximetry EKG Findings - EKG Comments: EKG Findings:: Sinus rhythm, inverted T waves. Ventricular rate 66, IL 132, QRS 80, QTC 415. Medical Decision Making - Medical Decision Making Patient is 29-year-old female presenting to the emergency department with a chief complaint of high blood pressure. She does have history headaches and is not the worst headache of her life. On initial evaluation, patient has blood pressure in the 160 systolic. EKG shows sinus rhythm with inverted T waves in lead 3, although this appears unchanged from an EKG from 2 years ago. I suspect the hypertension is secondary to her stopping the Procardia 1.5 months ago. Patient was given 50 mg of hydralazine by mouth in the ED. Will be discharged with a 2 week course of Procardia, at her previously prescribed regimen. She is set to follow up with her PCP, Dr. Sales in one week. Case was discussed with Dr. Wilson. Return parameters were thoroughly discussed with patient is understanding and agreeable. Disposition Clinical Impression: Headache, Hypertension Disposition: HOME SELF-CARE Condition: Stable Instructions (If sedation given, give patient instructions): Hypertension (ED) Additional Instructions: Take prescribed medication as directed. Follow up with your primary care. Return to emergency department if symptoms worsen. Prescriptions: NIFEdipine XL [Procardia Xl] 60 mg PO DAILY #30 tab Is patient prescribed a controlled substance at d/c from ED?: No Referrals: Simon Sales DO [Primary Care Provider] - 1-2 days Time of Disposition: 17:00
[2020-06-07] MEDS ORDERED: KETOROLAC 30 MG/ML 1 ML VIAL IM STA (17:02)
[2020-06-07 17:54] VITALS: BP 145/93; PULSE 88
== END 2020-06-07 17:53 | disposition home or self-care (01) ==
LOC: EC 15:44
DX: I10 Essential (primary) hypertension (principal); R11.0 Nausea; F32.9 Major depressive disorder, single episode, unspecified; F41.9 Anxiety disorder, unspecified; Z79.899 Other long term (current) drug therapy; Z88.0 Allergy status to penicillin; Z86.14 Personal history of Methicillin resistant Staphylococcus aureus infection
CPT/HCPCS: 93005; 96372; 99283; J1885

== ENCOUNTER 2020-06-08 13:10 | Emergency (ER) | payer BC ==
[2020-06-08 13:14] VITALS: TEMP 97.9
[2020-06-08] MEDS ORDERED: ONDANSETRON 4 MG/2 ML VIAL IVP STA (13:49)
[2020-06-08] MEDS ORDERED: SODIUM CHLORIDE 0.9% 1,000 ML IV STA (13:49)
[2020-06-08] MEDS ORDERED: KETOROLAC 30 MG/ML 1 ML VIAL IVP STA (13:49)
[2020-06-08] MEDS ORDERED: diphenhydrAMINE 50 MG/ML 1 ML VIAL IVP STA (13:49)
--- NOTE | 2020-06-08 14:10 | ED ---
Headache HPI - General Chief Complaint: Headache Stated Complaint: Migraine Time Seen by Provider: 06/08/20 13:24 Mode of arrival: ambulatory Limitations: no limitations - History of Present Illness Initial Comments: Patient is a 29-year-old female with history of hypertension, 3 months , presenting to the emergency department for re-evaluation. Patient was seen in the ER yesterday and was evaluated for hypertension, having a migraine. Patient states she was restarted on her Procardia yesterday as she was off of it during the last 3 months. Patient states she woke up this morning still having a headache, nauseous, some mild dizziness. Patient states she does have a history of migraines. Patient was concerned and came back in to the ER. Patient denies having a fever, chills, blurry vision. She denies any vomiting, diarrhea, abdominal pain. She has no further complaints at this time. Upon arrival to the ER, her vital signs are stable, BP is 144/79. - Related Data Home Medications Medication Instructions Recorded Confirmed Omeprazole 20 mg PO DAILY 10/23/16 06/08/20 Norethindrone-E.estradiol-Iron 1 tab PO DAILY 06/07/20 06/08/20 [Junel Fe 24 Tablet] Venlafaxine HCl [Effexor XR] 37.5 mg PO DAILY 06/07/20 06/08/20 Previous Rx's Medication Instructions Recorded NIFEdipine XL [Procardia Xl] 60 mg PO DAILY #30 tab 06/07/20 Allergies Allergy/AdvReac Type Severity Reaction Status Date / Time Penicillins Allergy Rash/Hives Verified 06/08/20 14:00 Review of Systems ROS Statement: Those systems with pertinent positive or pertinent negative responses have been documented in the HPI. ROS Other: All systems not noted in ROS Statement are negative. Past Medical History Additional Past Medical History / Comment(s): Migraines, pre eclampsia History of Any Multi-Drug Resistant Organisms: MRSA Date of last positivie culture/infection: 05/18/16 MDRO Source:: RIGHT LEG Past Surgical History: Section, Cholecystectomy Past Psychological History: Anxiety, Depression Smoking Status: Never smoker Past Alcohol Use History: Occasional Past Drug Use History: None Reported General Exam - General Exam Comments Initial Comments: GENERAL: Well-appearing, well-nourished and in no acute distress. HEAD: Atraumatic, normocephalic. EYES: Pupils equal round and reactive to light, extraocular movements intact, sclera anicteric, conjunctiva are normal. ENT: TMs normal, nares patent, oropharynx clear without exudates. Moist mucous memb ranes. NECK: Normal range of motion, supple without lymphadenopathy or JVD. LUNGS: Breath sounds clear to auscultation bilaterally and equal. No wheezes rales or rhonchi. HEART: Regular rate and rhythm without murmurs, rubs or gallops. ABDOMEN: Soft, nontender, normoactive bowel sounds. No guarding, no rebound. No masses appreciated. : Deferred EXTREMITIES: Normal range of motion, no pitting or edema. No clubbing or cyanosis. Strength is 5 out of 5 upper and lower extremities bilaterally, sensation is equal in bilateral upper and lower extremities. NEUROLOGICAL: Cranial nerves II through XII grossly intact. Normal speech, normal gait. PSYCH: Normal mood, normal affect. SKIN: Warm, Dry, normal turgor, no rashes or lesions noted. Limitations: no limitations Course Vital Signs 06/08/20 13:12 Temperature 97.9 F Pulse Rate 93 Respiratory 20 Rate Blood Pressure 144/79 O2 Sat by Pulse 99 Oximetry Medical Decision Making - Medical Decision Making Patient is a 29-year-old female here for a headache that started again this mo rning. Patient was seen in the ER yesterday for hypertension, she was restarted on her Procardia. She states her blood pressure is better however she started having a headache again today. Patient's vital signs are stable. Her exam is unremarkable, no neuro deficits. Patient was given some fluids, pain control, Benadryl and Zofran. She reports improvement in her symptoms. Patient is stable for discharge. I recommended trying Excedrin Extra Strength at home for future headaches as well as continue to increase her fluids. Patient will follow up with her PCP. This plan of care. Return parameters were discussed with the patient she verbalized understanding. Case discussed with Dr. Siegel. - Lab Data Lab Results 06/08/20 06/08/20 Range/Units 14:26 14:26 Urine Color Light Yellow Urine Appearance Cloudy H (Clear) Urine pH 7.0 (5.0-8.0) Ur Specific [place] 1.006 (1.001-1.035) Urine Protein Negative (Negative) Urine Glucose (UA) Negative (Negative) Urine Ketones Negative (Negative) Urine Blood Negative (Negative) Urine Nitrite Negative (Negative) Urine Bilirubin Negative (Negative) Urine Urobilinogen <2.0 (<2.0) mg/dL Ur Leukocyte Esterase Moderate H (Negative) Urine RBC <1 (0-5) /hpf Urine WBC 4 (0-5) /hpf Ur Squamous Epith Cells 17 H (0-4) /hpf Urine Bacteria Moderate H (None) /hpf Urine Mucus Rare H (None) /hpf Urine HCG, Qual Not Detected (Not Detectd) Disposition Clinical Impression: Headache Disposition: HOME SELF-CARE Condition: Stable Instructions (If sedation given, give patient instructions): Acute Headache (ED) Additional Instructions: Please return to the Emergency Department if symptoms worsen or any other concerns. Trial of Excedrin Extra Strength for future headaches or alternating between Tylenol and Motrin. Follow-up with PCP. Is patient prescribed a controlled substance at d/c from ED?: No Referrals: Simon Sales DO [Primary Care Provider] - 1-2 days
[2020-06-08 15:08] LABS: Appearance,Urine Cloudy (Clear); Bacteria,Urine Moderate /hpf; Bilirubin,Urine Negative (Negative); Blood,Urine Negative (Negative); Color,Urine Light Yellow; Glucose,Urine (UA) Negative (Negative); Ketones,Urine Negative (Negative); Leukocyte Esterase,Urine Moderate (Negative); Mucus,Urine Rare /hpf; Nitrite,Urine Negative (Negative); Protein,Urine Negative (Negative); RBC,Urine <1 /hpf (0-5); Specific Gravity,Urine 1.006 (1.001-1.035); Squamous Epithelial Cell,Urine 17 /hpf (0-4); Urobilinogen,Urine <2.0 mg/dL (<2.0); WBC,Urine 4 /hpf (0-5)
[2020-06-08 16:15] VITALS: BP 135/78; PULSE 74; RESP 18
== END 2020-06-08 16:10 | disposition home or self-care (01) ==
LOC: EC 13:10
DX: R51 Headache (principal); I10 Essential (primary) hypertension; R42 Dizziness and giddiness; R11.0 Nausea; F41.9 Anxiety disorder, unspecified; F32.9 Major depressive disorder, single episode, unspecified; Z79.899 Other long term (current) drug therapy; Z79.3 Long term (current) use of hormonal contraceptives; Z88.0 Allergy status to penicillin; Z86.69 Personal history of other diseases of the nervous system and sense organs; Z86.14 Personal history of Methicillin resistant Staphylococcus aureus infection
CPT/HCPCS: 81001; 81025; 99283; 96374; 96375 ×2; 96361; J1200; J2405; J1885

== ENCOUNTER → 2020-08-31 | Outpatient (CLI) | payer BC | END | disposition home or self-care (01) | LOC: LABWHC1 09:57 | PROVIDERS: ATTEND Family Medicine | DX: Z20.828 Contact with and (suspected) exposure to other viral communicable diseases (principal) | CPT/HCPCS: U0003; C9803 ==

== ENCOUNTER 2021-05-27 | Emergency (ER) | payer BC | END 2021-05-27 22:09 | disposition home or self-care (01) ==

== ENCOUNTER 2023-06-03 17:50 | Emergency (ER) | payer BC ==
[2023-06-03 18:24] VITALS: TEMP 98.6
[2023-06-03 20:19] LABS: ALT 44 U/L (4-34); AST 31 U/L (14-36); African American GFR (CKD) >90 (>60 ml/min/1.73 sqM); Alkaline Phosphatase 90 U/L (38-126); Anion Gap 9 mmol/L; Blood Urea Nitrogen 7 mg/dL (7-17); Calcium 8.8 mg/dL (8.4-10.2); Carbon Dioxide 28 mmol/L (22-30); Chloride 101 mmol/L (98-107); Glucose 114 mg/dL (74-99); Non-African American GFR(CKD) >90 (>60 ml/min/1.73 sqM); Potassium 3.7 mmol/L (3.5-5.1); Sodium 138 mmol/L (137-145); Total Bilirubin 0.4 mg/dL (0.2-1.3); Total Protein 7.2 g/dL (6.3-8.2)
[2023-06-03] MEDS ORDERED: LIDOCAINE/EPINEPHR/TETRACAINE 5 ML BOTTLE TOPICAL ONE (20:30)
--- NOTE | 2023-06-03 20:42 | XR ---
EXAMINATION TYPE: XR elbow complete LT DATE OF EXAM: 06/03/2023 8:21 PM INDICATION: Patient age:Female; 32 years old; Reason for study: cellulitis; PHH. COMPARISON: None TECHNIQUE: The left elbow was examined in AP, lateral, and oblique projections. FINDINGS: No evidence of any acute osseous pathology, joint dislocation,. Soft tissue swelling involv ing the dorsal proximal forearm and dorsal distal arm. No evidence of joint effusion is present. IMPRESSION: No evidence of acute fracture. Soft tissue swelling predominantly posteriorly correlate for cellulitis. No evidence for osseous eros ion.
--- NOTE | 2023-06-03 20:43 | ED ---
Skin/Abscess/FB HPI - General Chief complaint: Skin/Abscess/Foreign Body Stated complaint: L elbow Abccess Time Seen by Provider: 06/03/23 19:32 Source: patient Mode of arrival: ambulatory Limitations: no limitations - History of Present Illness Initial comments: Patient is a pleasant 32-year-old female presenting to the emergency room complaints of increased pain, redness, and swelling to her left elbow. She reports that she had a pimple-like lesion that developed on her left elbow approximately 4 days ago in which she did have some purulent drainage from and over the course of the last 4 days she has had an increase in surrounding redness and swelling stating that the abscess has stopped draining. She reports that she was concerned as in the past she has had abscesses that required intervention and IV antibiotics. She states that she has had a history of MRSA to her previous abscesses. She has not had an abscess in many years. She denies any range of motion impairment of her left elbow not directly related to swelling. She denies any systemic symptoms of infection including any chest pain, shortness of breath, nausea, vomiting, altered mental status, fatigue, weakness, fevers or chills. In addition to her history of previous skin abscesses with MRSA she has a past medical history significant for migraines. - Related Data Home Medications Medication Instructions Recorded Confirmed Omeprazole 20 mg PO DAILY 10/23/16 06/08/20 Venlafaxine HCl [Effexor XR] 37.5 mg PO DAILY 06/07/20 06/08/20 norethindrone-e.estradioL-iron 1 tab PO DAILY 06/07/20 06/08/20 [Junel Fe 24 Tablet] Previous Rx's Medication Instructions Recorded NIFEdipine XL [Procardia Xl] 60 mg PO DAILY #30 tab 06/07/20 clindamycin HCL [Cleocin] 300 mg PO Q6HR 10 Days #40 cap 06/03/23 Allergies Allergy/AdvReac Type Severity Reaction Status Date / Time Penicillins Allergy Rash/Hives Verified 06/03/23 18:24 Review of Systems ROS Statement: Those systems with pertinent positive or pertinent negative responses have been documented in the HPI. ROS Other: All systems not noted in ROS Statement are negative. Past Medical History Additional Past Medical History / Comment(s): Migraines, pre eclampsia History of Any Multi-Drug Resistant Organisms: MRSA Date of last positivie culture/infection: 05/18/16 MDRO Source:: RIGHT LEG Past Surgical History: Section, Cholecystectomy Past Psychological History: Anxiety, Depression Smoking Status: Never smoker Past Alcohol Use History: Occasional Past Drug Use History: None Reported General Exam Limitations: no limitations General appearance: alert, in no apparent distress Head exam: Present: atraumatic, normocephalic, normal inspection Eye exam: Present: normal appearance, PERRL, EOMI. Absent: scleral icterus, conjunctival injection, periorbital swelling ENT exam: Present: normal exam, mucous membranes moist Neck exam: Present: normal inspection, full ROM Respiratory exam: Absent: respiratory distress, accessory muscle use Cardiovascular Exam: Present: tachycardia (mild) GI/Abdominal exam: Present: soft. Absent: distended, tenderness, guarding, rebound, rigid Left Elbow exam: Present: tenderness, swelling, erythema. Absent: full ROM (limited by pain and swelling) Vascular: Absent: vascular compromise Back exam: Present: normal inspection Neurological exam: Present: alert, oriented X3, CN II-XII intact Psychiatric exam: Present: normal affect, normal mood Skin exam: Present: other (Abscess over the olecranon without drainage prior to I & D with surrounding induration including warmth, tenderness, and erythema total diameter appx 3.5 cm ) Course Vital Signs 06/03/23 06/03/23 18:22 22:34 Temperature 98.6 F Pulse Rate 116 H 94 Respiratory 22 18 Rate Blood Pressure 177/104 151/99 O2 Sat by Pulse 100 100 Oximetry Procedures - Incision & Drainage Consent Obtained: verbal consent Indication: Abscess Site: upper extremity (Left elbow) I&D Cleaning Method: Chloroprep Scalpel Used: #11 I&D Drainage Obtained: Pus, Blood Culture Obtained?: Yes Patient Tolerated Procedure: well, no complications Medical Decision Making - Medical Decision Making Was pt. sent in by a medical professional or institution (, PA, GLASS FURNACE TENDER, urgent care, hospital, or snf...) When possible be specific @ -No Did you speak to anyone other than the patient for history (EMS, parent, family, police, friend...)? What history was obtained from this source @ -No Did you review nursing and triage notes (agree or disagree)? Why? @ -I reviewed and agree with nursing and triage notes Were old charts reviewed (outside hosp., previous admission, EMS record, old EKG, old radiological studies, urgent care reports/EKG's, snf records)? Report findings @ -No old charts were reviewed Differential Diagnosis (chest pain, altered mental status, abdominal pain women, abdominal pain men, vaginal bleeding, weakness, fever, dyspnea, syncope, headache, dizziness, GI bleed, back pain, seizure, CVA, palpatations, mental health, musculoskeletal)? @ -Not applicable EKG interpreted by me (3pts min.). @ -None done X-rays interpreted by me (1pt min.). @ -X-ray left elbow: No fracture, dislocation or osseous erosion. Soft tissue swelling. CT interpreted by me (1pt min.). @ -None done U/S interpreted by me (1pt. min.). @ -None done What testing was considered but not performed or refused? (CT, X-rays, U/S, labs)? Why? @ -None What meds were considered but not given or refused? Why? @ -None Did you discuss the management of the patient with other professionals (professionals i.e. , PA, GLASS FURNACE TENDER, lab, RT, psych nurse, social science research assistant, transfer specialist, teacher, retirement officer, outsole caser)? Give summary @ -No Was smoking cessation discussed for >3mins.? @ -No Was critical care preformed (if so, how long)? @ -No Were there social determinants of health that impacted care today? How? (Homelessness, low income, unemployed, alcoholism, drug addiction, transportation, low edu. Level, literacy, decrease access to med. care, alf, rehab)? @ -No Was there de-escalation of care discussed even if they declined (Discuss DNR or withdrawal of care, Hospice)? DNR status @ -No What co-morbidities impacted this encounter? (DM, HTN, Smoking, COPD, CAD, Cancer, CVA, ARF, Chemo, Hep., AIDS, mental health diagnosis, sleep apnea, morbid obesity)? @ -MRSA history Was patient admitted / discharged? Hospital course, mention meds given and route, prescriptions, significant lab abnormalities, going to OR and other pertinent info. @ -32-year-old female was using to the emergency room with cellulitis and abscess to the left elbow with known history of MRSA and septicemia requiring IV antibiotic and hospitalization. Will obtain xray of elbow and then proceed with I & D. Will have nursing applyl LET as topical anesthetic for incision and drainage procedure. Will also give morphine IV for pain. Will obtain culture. Due to history of septicemia will obtain CBC and CMP. X-ray negative for osseous erosion. Incision and drainage tolerated well without complication, culture obtained. Laboratory studies revealed elevated WBC at 13.9 with neutrophils at 10.4. CMP with elevated AST at 44 no her AST and alkaline phosphatase glucose elevated at 114 no other abnormalities on CMP. Due to history of MRSA will treat cellulitis and abscess with clindamycin with first dose to be given now. Advise completion of antibiotic therapy as prescribed. Advised will receive call if alternative antibiotic therapy necessary. Encouraged follow-up with primary care provider. Questions and concerns answered. Return parameters to the emergency room discussed. Will discharge home in stable condition on clindamycin to treat left elbow cellulitis and abscess advising follow-up with primary care provider. Undiagnosed new problem with uncertain prognosis? @ -No Drug Therapy requiring intensive monitoring for toxicity (Heparin, Nitro, Insulin, Cardizem)? @ -No Were any procedures done? @ -Yes, incision and drainage of abscess to left elbow see procedures for details. Diagnosis/symptom? @ -Cellulitis and abscess of left elbow Acute, or Chronic, or Acute on Chronic? @ -Acute Uncomplicated (without systemic symptoms) or Complicated (systemic symptoms)? @ -Uncomplicated Side effects of treatment? @ -No Exacerbation, Progression, or Severe Exacerbation? @ -No Poses a threat to life or bodily function? How? (Chest pain, [place], [place], pneumonia, PE, COPD, DKA, ARF, appy, cholecystitis, CVA, Diverticulitis, Homicidal, Suicidal, threat to staff... and all critical care pts) @ -No Case discussed with Dr. Salter. - Lab Data Result diagrams: 06/03/23 19:45 06/03/23 19:45 Lab Results 06/03/23 06/03/23 06/03/23 Range/Units 19:45 19:45 19:45 WBC 13.9 H (3.8-10.6) k/uL RBC 5.01 (3.80-5.40) m/uL Hgb 13.0 (11.4-16.0) gm/dL Hct 39.1 (34.0-46.0) % MCV 78.0 L (80.0-100.0) fL MCH 26.0 (25.0-35.0) pg MCHC 33.3 (31.0-37.0) g/dL RDW 15.1 (11.5-15.5) % Plt Count 281 (150-450) k/uL MPV 10.1 Neutrophils % 75 % Lymphocytes % 19 % Monocytes % 4 % Eosinophils % 1 % Basophils % 0 % Neutrophils # 10.4 H (1.3-7.7) k/uL Lymphocytes # 2.7 (1.0-4.8) k/uL Monocytes # 0.6 (0-1.0) k/uL Eosinophils # 0.1 (0-0.7) k/uL Basophils # 0.0 (0-0.2) k/uL Microcytosis Slight Sodium 138 (137-145) mmol/L Potassium 3.7 (3.5-5.1) mmol/L Chloride 101 (98-107) mmol/L Carbon Dioxide 28 (22-30) mmol/L Anion Gap 9 mmol/L BUN 7 (7-17) mg/dL Creatinine 0.64 (0.52-1.04) mg/dL Est GFR (CKD-EPI)AfAm >90 (>60 ml/min/1.73 sqM) Est GFR (CKD-EPI)NonAf >90 (>60 ml/min/1.73 sqM) Glucose 114 H (74-99) mg/dL Plasma Lactic Acid Mu 1.4 (0.7-2.0) mmol/L Calcium 8.8 (8.4-10.2) mg/dL Total Bilirubin 0.4 (0.2-1.3) mg/dL AST 31 (14-36) U/L ALT 44 H (4-34) U/L Alkaline Phosphatase 90 (38-126) U/L Total Protein 7.2 (6.3-8.2) g/dL Albumin 4.0 (3.5-5.0) g/dL - Radiology Data Radiology results: report reviewed, image reviewed Disposition Clinical Impression: Cellulitis and abscess of upper extremity Disposition: HOME SELF-CARE Condition: Stable Instructions (If sedation given, give patient instructions): Cellulitis (ED), Abscess Incision and Drainage (ED) Additional Instructions: Complete course of antibiotic as prescribed. Utilize [id number] ibuprofen or Tylenol as needed for pain. Please keep dressing applied to abscess site with monitoring of drainage. Please follow-up with your primary care provider. Please return to the Emergency Department if symptoms worsen or any other concerns. Prescriptions: clindamycin HCL [Cleocin] 300 mg PO Q6HR 10 Days #40 cap Is patient prescribed a controlled substance at d/c from ED?: No Referrals: Simon Sales DO [Primary Care Provider] - 1-2 days Time of Disposition: 22:07
[2023-06-03 20:50] LABS: Basophils % (A) 0 %; Eosinophils # (A) 0.1 k/uL (0-0.7); Eosinophils % (A) 1 %; HCT 39.1 % (34.0-46.0); Lymphocytes # (A) 2.7 k/uL (1.0-4.8); Lymphocytes % (A) 19 %; MCHC 33.3 g/dL (31.0-37.0); Mean Platelet Volume 10.1; Microcytosis Slight; Monocytes # (A) 0.6 k/uL (0-1.0); Monocytes % (A) 4 %; Neutrophils # (A) 10.4 k/uL (1.3-7.7); Neutrophils % (A) 75 %; Platelet Count 281 k/uL (150-450); RBC 5.01 m/uL (3.80-5.40); RDW 15.1 % (11.5-15.5); WBC 13.9 k/uL (3.8-10.6)
[2023-06-03] MEDS ORDERED: MORPHINE SULFATE 4 MG/ML SYRINGE IVP STA (21:12)
[2023-06-03] MEDS ORDERED: CLINDAMYCIN 150 MG CAP PO STA (22:05)
[2023-06-03 22:36] VITALS: BP 151/99; PULSE 94; RESP 18
== END 2023-06-03 22:42 | disposition home or self-care (01) ==
LOC: EC 17:50
DX: L03.114 Cellulitis of left upper limb (principal); B95.62 Methicillin resistant Staphylococcus aureus infection as the cause of diseases classified elsewhere; F41.9 Anxiety disorder, unspecified; F32.A Depression, unspecified; Z88.0 Allergy status to penicillin; Z79.899 Other long term (current) drug therapy
CPT/HCPCS: 36415; 80053; 83605; 85025; 87070; 87205; 87077; 87186; 73080; 99284; 96374; 10060; J2270

== ENCOUNTER 2023-11-18 19:17 | Observation (INO) | payer BC ==
--- NOTE | 2023-11-18 19:44 | ED ---
Abdominal Pain HPI - General Source: patient, RN notes reviewed <Syed Garza - Last Filed: 11/18/23 19:43> - General Source: patient, RN notes reviewed Mode of arrival: ambulatory Limitations: no limitations - History of Present Illness MD Complaint: abdominal pain <Karlie Zuluaga - Last Filed: 11/19/23 03:49> - General Chief Complaint: Abdominal Pain Stated Complaint: Abd pain Time Seen by Provider: 11/18/23 19:43 - History of Present Illness Initial Comments: Patient is a 33-year-old female presented ER with chief complaint of abdominal pain. She reports this started around 1 PM today. Patient states she's had a decreased appetite and is slightly nauseous. Denies any episodes of vomiting. Denies any constipation/diarrhea. Patient is worried for appendicitis. Patient denies any fevers, chills, night sweats (Syed Garza) This is a 33-year-old female who presents to the emergency department for abdominal pain. States that around 1 PM today she started to develop sharp severe pain in the center of her abdomen. States that this seemed to radiate upwards and also into her back. Pain is primarily right-sided. She has had nausea but denies any vomiting. Denies any fevers, chills, diarrhea, or constipation. She no longer has her gallbladder, but states that she is concerned about appendicitis. Denies having any medical problems. (Karlie Zuluaga) - Related Data Home Medications Medication Instructions Recorded Confirmed Omeprazole 20 mg PO DAILY 10/23/16 06/08/20 Venlafaxine HCl [Effexor XR] 37.5 mg PO DAILY 06/07/20 06/08/20 norethindrone-e.estradioL-iron 1 tab PO DAILY 06/07/20 06/08/20 [Junel Fe 24 Tablet] Previous Rx's Medication Instructions Recorded NIFEdipine XL [Procardia Xl] 60 mg PO DAILY #30 tab 06/07/20 clindamycin HCL [Cleocin] 300 mg PO Q6HR 10 Days #40 cap 06/03/23 Allergies Allergy/AdvReac Type Severity Reaction Status Date / Time Penicillins Allergy Rash/Hives Verified 11/18/23 20:58 Review of Systems ROS Other: All systems not noted in ROS Statement are negative. <Syed Garza - Last Filed: 11/18/23 19:43> ROS Other: All systems not noted in ROS Statement are negative. <Karlie Zuluaga - Last Filed: 11/19/23 03:49> ROS Statement: Those systems with pertinent positive or pertinent negative responses have been documented in the HPI. Past Medical History Additional Past Medical History / Comment(s): Migraines, pre eclampsia History of Any Multi-Drug Resistant Organisms: MRSA Date of last positivie culture/infection: 05/18/16 MDRO Source:: RIGHT LEG Past Surgical History: Section, Cholecystectomy Past Psychological History: Anxiety, Depression Smoking Status: Never smoker Past Alcohol Use History: Occasional Past Drug Use History: None Reported <Syed Garza - Last Filed: 11/18/23 19:43> General Exam <Syed Garza - Last Filed: 11/18/23 19:43> Limitations: no limitations General appearance: alert, in no apparent distress Head exam: Present: atraumatic, normocephalic, normal inspection Respiratory exam: Present: normal lung sounds bilaterally. Absent: respiratory distress, wheezes, rales, rhonchi, stridor Cardiovascular Exam: Present: regular rate, normal rhythm, normal heart sounds. Absent: systolic murmur, diastolic murmur, rubs, gallop, clicks GI/Abdominal exam: Present: soft, tenderness (Right mid and lower abdomen), normal bowel sounds. Absent: distended Neurological exam: Present: alert, oriented X3, CN II-XII intact Psychiatric exam: Present: normal affect, normal mood Skin exam: Present: warm, dry, intact, normal color. Absent: rash <Karlie Zuluaga - Last Filed: 11/19/23 03:49> - General Exam Comments Initial Comments: Visual Physical Exam Vital signs reviewed General: Well-appearing, nontoxic, no acute distress. Head: Normocephalic, atraumatic Eyes: PERRLA, EOMI ENT: Airway patent Chest: Nonlabored breathing Skin: No visual rash, normal skin tone Neuro: Alert and oriented 3 Musculoskeletal: No gross abnormalities (Syed Garza) Course Vital Signs 11/18/23 20:56 Temperature 99 F Pulse Rate 90 Respiratory 18 Rate Blood Pressure 165/107 O2 Sat by Pulse 97 Oximetry Medical Decision Making <Syed Garza Last Filed: 11/18/23 19:43> - Lab Data Result diagrams: 11/18/23 21:23 11/18/23 21:23 - Radiology Data Radiology results: report reviewed, image reviewed <Karlie Zuluaga - Last Filed: 11/19/23 03:49> - Medical Decision Making I performed the quick note portion of the exam. Electronically signed by Syed Garza PA-C (Syed Garza) This is a 33-year-old female who presents to the emergency department for abdominal pain. Was pt. sent in by a medical professional or institution? @ -No Did you speak to anyone other than the patient for history? @ -No Did you review nursing and triage notes? @ -Yes, and I agree, it is accurate with regards to the patient's symptoms. Were old charts reviewed? @ -No Differential Diagnosis? @ -Differential Abdominal Pain Women: Appendicitis, Cholecystitis, diverticulosis, ischemic bowel, pancreatitis, hepatitis, UTI, gastroenteritis, AAA, incarcerated hernia, bowel obstruction, constipation, inflammatory bowel, hepatitis, peptic ulcer disease, splenic infarction, perforated viscus, vulvitis, ovarian torsion, PID, kidney stone, placenta abruption, this is not meant to be an all-inclusive list EKG interpreted by me (3pts min.)? @ -Not obtained X-rays interpreted by me (1pt min.)? @ -Not obtained CT interpreted by me (1pt min.)? @ -CT scan of the abdomen and pelvis obtained. My interpretation identifies distention of the appendix. U/S interpreted by me (1pt. min.)? @ -Not obtained What testing was considered but not performed? (CT, X-rays, U/S, labs)? Why? @ -None What meds were considered but not given? Why? @ -None Did you discuss the management of the patient with other professionals? @ -Dr. Soto, ED attending, discussed the case with Dr. Castro, general surgery, who accepts the patient for admission. Did you reconcile home meds? @ -No Was smoking cessation discussed for >3mins.? @ -No Was critical care preformed (if so, how long)? @ -No Were there social determinants of health that impacted care today? How? (Homele ssness, low income, unemployed, alcoholism, drug addiction, transportation, low edu. Level, literacy, decrease access to med. care, group home, rehab)? @ -No Was there de-escalation of care discussed even if they declined? (Discuss DNR or withdrawal of care, Hospice)? @ -No What co-morbidities impacted this encounter? (DM, HTN, Smoking, COPD, CAD, Cancer, CVA, Hep., AIDS, mental health diagnosis, sleep apnea, morbid obesity)? @ -None Was patient admitted / discharged? @ -Admitted. Lab work obtained revealing leukocytosis, it was otherwise fairly unremarkable. Computed tomography scan of the abdomen and pelvis obtained revealing findings consistent with acute appendicitis. There is a distended appendix measuring up to 1 cm and mild fat stranding. No perforation or abscess was identified. Patient has a penicillin allergy and was started on Flagyl and Levaquin. Blood cultures were obtained and she was started on maintenance IV fluids and kept NPO. Patient admitted to general surgery for further management. Undiagnosed new problem with uncertain prognosis? @ -None Drug Therapy requiring intensive monitoring for toxicity (Heparin, Nitro, Insulin, Cardizem)? @ -None Were any procedures done? @ -None Diagnosis/symptom? @ -Appendicitis Acute, or Chronic, or Acute on Chronic? @ -Acute Uncomplicated (without systemic symptoms) or Complicated (systemic symptoms)? @ -Uncomplicated Side effects of treatment? @ -None Exacerbation, Progression, or Severe Exacerbation] @ -Not applicable Poses a threat to life or bodily function? @ -Yes This case was discussed in detail with the attending ED physician, Dr. Soto. Presentation, findings, and treatment plan discussed in detail as well. (Karlie Zuluaga) - Lab Data Lab Results 11/18/23 11/18/23 11/18/23 Range/Units 21:23 21:23 : WBC 17.9 H (3.8-10.6) k/uL RBC 5.51 H (3.80-5.40) m/uL Hgb 14.1 (11.4-16.0) gm/dL Hct 43.0 (34.0-46.0) % MCV 78.0 L (80.0-100.0) fL MCH 25.7 (25.0-35.0) pg MCHC 32.9 (31.0-37.0) g/dL RDW 14.3 (11.5-15.5) % Plt Count 348 (150-450) k/uL MPV 8.9 Sodium (137-145) mmol/L Potassium (3.5-5.1) mmol/L Chloride (98-107) mmol/L Carbon Dioxide (22-30) mmol/L Anion Gap mmol/L BUN (7-17) mg/dL Creatinine (0.52-1.04) mg/dL Est GFR (CKD-EPI)AfAm (>60 ml/min/1.73 sqM) Est GFR (CKD-EPI)NonAf (>60 ml/min/1.73 sqM) Glucose (74-99) mg/dL Plasma Lactic Acid Mu (0.7-2.0) mmol/L Calcium (8.4-10.2) mg/dL Total Bilirubin (0.2-1.3) mg/dL AST (14-36) U/L ALT (4-34) U/L Alkaline Phosphatase (38-126) U/L Total Protein (6.3-8.2) g/dL Albumin (3.5-5.0) g/dL Amylase (30-110) U/L Lipase (23-300) U/L Urine Color Yellow Urine Appearance Cloudy H (Clear) Urine pH 6.0 (5.0-8.0) Ur Specific [place] 1.022 (1.001-1.035) Urine Protein Trace H (Negative) Urine Glucose (UA) Negative (Negative) Urine Ketones Negative (Negative) Urine Blood Trace H (Negative) Urine Nitrite Negative (Negative) Urine Bilirubin Negative (Negative) Urine Urobilinogen <2.0 (<2.0) mg/dL Ur Leukocyte Esterase Moderate H (Negative) Urine RBC 3 (0-5) /hpf Urine WBC 12 H (0-5) /hpf Ur Squamous Epith Cells 5 H (0-4) /hpf Urine Bacteria Rare H (None) /hpf Urine Mucus Few H (None) /hpf Urine HCG, Qual Not Detected (Not Detectd) 11/18/23 11/18/23 Range/Units 21:23 21:23 WBC (3.8-10.6) k/uL RBC (3.80-5.40) m/uL Hgb (11.4-16.0) gm/dL Hct (34.0-46.0) % MCV (80.0-100.0) fL MCH (25.0-35.0) pg MCHC (31.0-37.0) g/dL RDW (11.5-15.5) % Plt Count (150-450) k/uL MPV Sodium 139 (137-145) mmol/L Potassium 3.5 (3.5-5.1) mmol/L Chloride 97 L (98-107) mmol/L Carbon Dioxide 27 (22-30) mmol/L Anion Gap 15 mmol/L BUN 10 (7-17) mg/dL Creatinine 0.71 (0.52-1.04) mg/dL Est GFR (CKD-EPI)AfAm >90 (>60 ml/min/1.73 sqM) Est GFR (CKD-EPI)NonAf >90 (>60 ml/min/1.73 sqM) Glucose 130 H (74-99) mg/dL Plasma Lactic Acid Mu 1.0 (0.7-2.0) mmol/L Calcium 10.1 (8.4-10.2) mg/dL Total Bilirubin 0.4 (0.2-1.3) mg/dL AST 38 H (14-36) U/L ALT 64 H (4-34) U/L Alkaline Phosphatase 105 (38-126) U/L Total Protein 8.4 H (6.3-8.2) g/dL Albumin 4.5 (3.5-5.0) g/dL Amylase 46 (30-110) U/L Lipase 110 (23-300) U/L Urine Color Urine Appearance (Clear) Urine pH (5.0-8.0) Ur Specific [place] (1.001-1.035) Urine Protein (Negative) Urine Glucose (UA) (Negative) Urine Ketones (Negative) Urine Blood (Negative) Urine Nitrite (Negative) Urine Bilirubin (Negative) Urine Urobilinogen (<2.0) mg/dL Ur Leukocyte Esterase (Negative) Urine RBC (0-5) /hpf Urine WBC (0-5) /hpf Ur Squamous Epith Cells (0-4) /hpf Urine Bacteria (None) /hpf Urine Mucus (None) /hpf Urine HCG, Qual (Not Detectd) Disposition <Syed Garza - Last Filed: 11/18/23 19:43> <Karlie Zuluaga - Last Filed: 11/19/23 03:49> Clinical Impression: Acute appendicitis Disposition: ADMITTED IP TO THIS HOSP
[2023-11-18 21:48] LABS: HGB 14.1 gm/dL (11.4-16.0); MCH 25.7 pg (25.0-35.0); MCHC 32.9 g/dL (31.0-37.0); Mean Platelet Volume 8.9; Platelet Count 348 k/uL (150-450); RBC 5.51 m/uL (3.80-5.40); RDW 14.3 % (11.5-15.5); WBC 17.9 k/uL (3.8-10.6)
[2023-11-18 21:57] LABS: ALT 64 U/L (4-34); AST 38 U/L (14-36); African American GFR (CKD) >90 (>60 ml/min/1.73 sqM); Albumin 4.5 g/dL (3.5-5.0); Alkaline Phosphatase 105 U/L (38-126); Amylase 46 U/L (30-110); Anion Gap 15 mmol/L; Blood Urea Nitrogen 10 mg/dL (7-17); Calcium 10.1 mg/dL (8.4-10.2); Carbon Dioxide 27 mmol/L (22-30); Chloride 97 mmol/L (98-107); Glucose 130 mg/dL (74-99); Lipase 110 U/L (23-300); Non-African American GFR(CKD) >90 (>60 ml/min/1.73 sqM); Potassium 3.5 mmol/L (3.5-5.1); Sodium 139 mmol/L (137-145); Total Bilirubin 0.4 mg/dL (0.2-1.3); Total Protein 8.4 g/dL (6.3-8.2)
[2023-11-18 22:04] LABS: Appearance,Urine Cloudy (Clear); Bacteria,Urine Rare /hpf; Bilirubin,Urine Negative (Negative); Blood,Urine Trace (Negative); Color,Urine Yellow; Glucose,Urine (UA) Negative (Negative); Ketones,Urine Negative (Negative); Leukocyte Esterase,Urine Moderate (Negative); Mucus,Urine Few /hpf; Nitrite,Urine Negative (Negative); Protein,Urine Trace (Negative); RBC,Urine 3 /hpf (0-5); Specific Gravity,Urine 1.022 (1.001-1.035); Squamous Epithelial Cell,Urine 5 /hpf (0-4); Urobilinogen,Urine <2.0 mg/dL (<2.0); WBC,Urine 12 /hpf (0-5)
[2023-11-18] MEDS ORDERED: KETOROLAC 15 MG/ML 1 ML VIAL IVP STA (22:49)
[2023-11-18] MEDS ORDERED: ONDANSETRON 4 MG/2 ML VIAL IVP STA (22:49)
[2023-11-18] MEDS ORDERED: SODIUM CHLORIDE 0.9% 1,000 ML IV STA (23:01)
--- NOTE | 2023-11-18 23:19 | CT ---
EXAM: CT Abdomen and Pelvis With Intravenous Contrast CLINICAL HISTORY: ITS.REASON CT Reason: abd pain TECHNIQUE: Axial computed tomography images of the abdomen and pelvis with intravenous contrast. CTDI is 45.4 mGy and DLP is 2299.1 mGy-cm. This CT exam was performed using one or more of the following dose reduction techniques: automated exposure control, adjustment of the mA and/or kV according to patient size, and/or use of iterative reconstruction technique. COMPARISON: CT abdomen pelvis 05/27/2021. FINDINGS: Lung bases: Unremarkable. No mass. No consolidation. ABDOMEN: Liver: Hepatic steatosis. Gallbladder and bile ducts: Cholecystectomy. No ductal dilation. Pancreas: Unremarkable. No mass. No ductal dilation. Spleen: Unremarkable. No splenomegaly. Adrenals: Unremarkable. No mass. Kidneys and ureters: Unremarkable. No hydronephrosis or delayed nephrogram. Stomach and bowel: Diverticulosis, without acute diverticulitis. No obstruction. PELVIS: Appendix: Positive for acute appendicitis, consisting of a distended appendix measuring up to 1 cm, with mild periappendiceal fat stranding. Bladder: Decompressed urinary bladder. Reproductive: Unremarkable as visualized. ABDOMEN and PELVIS: Intraperitoneal space: Unremarkable. No free air. No significant fluid collection. Bones/joints: No acute fracture. No dislocation. Soft tissues: Unremarkable. Vasculature: Unremarkable. No abdominal aortic aneurysm. Lymph nodes: Unremarkable. No enlarged lymph nodes. IMPRESSION: Positive for acute appendicitis, consisting of a distended appendix measuring up to 1 cm, with mild periappendiceal fat stranding. No perforation or abscess. <MYCVCSECTION> Communications: 11/18/23 23:34 Verify Receipt Verified receipt with nurse Funk on 11/18 23:33 (-05:00)
[2023-11-18] MEDS ORDERED: LEVOFLOXACIN 750MG-D5W PMX 750 MG in DEXTROSE/WATER 1 150ML.BAG IVPB STA (23:27)
[2023-11-18] MEDS ORDERED: metroNIDAZOLE-NS PMX 500 MG in SALINE 1 100ML.BAG IVPB STA (23:30)
[2023-11-18] MEDS ORDERED: ONDANSETRON 4 MG/2 ML VIAL IVP PRN (23:33)
[2023-11-18] MEDS ORDERED: MORPHINE SULFATE 4 MG/ML SYRINGE IV PRN (23:33)
[2023-11-18] MEDS ORDERED: NALOXONE 0.4 MG/ML 1 ML VIAL IV PRN (23:33)
[2023-11-19] MEDS: SODIUM CHLORIDE 0.9% 1,000 ML IV SCH ×4 (00:29→21:37)
[2023-11-19] MEDS ORDERED: MORPHINE SULFATE 2 MG/ML SYRINGE IVP PRN (03:45)
[2023-11-19] MEDS ORDERED: ACETAMINOPHEN IV (For NPO) 1,000 MG in EMPTY BAG 1 BAG IVPB PRN (03:45)
[2023-11-19] MEDS ORDERED: ACETAMINOPHEN IV (For NPO) 1,000 MG in EMPTY BAG 1 BAG IVPB SCH (06:15)
[2023-11-19] MEDS ORDERED: HEPARIN SODIUM,PORCINE 5,000 UNIT/ML 1 ML VIAL SQ PRN (06:16)
[2023-11-19] MEDS: KETOROLAC 15 MG/ML 1 ML VIAL IVP SCH ×3 (06:27→21:25)
[2023-11-19] MEDS: metroNIDAZOLE-NS PMX 500 MG in SALINE 1 100ML.BAG IVPB SCH ×2 (09:52→21:36)
--- NOTE | 2023-11-19 16:31 | P.GSHP ---
History of Present Illness H&P Date: 11/19/23 CHIEF COMPLAINT: Right lower quadrant abdominal pain with appendicitis for over 1 day. HISTORY OF PRESENT ILLNESS: The patient is [id number] female who presents with over 1.5 day history of periumbilical with right lower quadrant abdominal pain that is crampy dull ache in nature. No reports of prior abdominal pain. She states the intensity of the pain is moderate but has improved today. Her presented with CT abdomen and pelvis consistent with dilated appendix suspicious for appendicitis hence general surgery admission. PAST MEDICAL HISTORY: See list and reviewed PAST SURGICAL HISTORY: See list and reviewed CURRENT MEDICATIONS: See list and reviewed ALLERGIES: See list and reviewed SOCIAL HISTORY: See list and reviewed FAMILY HISTORY: See list and reviewed REVIEW OF ORGAN SYSTEMS: CONSTITUTIONAL: Present fever, no chills. Denies recent weight loss. Morbid obesity due to excess calories, BMI 36.6 HEENT: Denies any trouble with vision, hearing or nosebleeds. No difficulty swallowing. LYMPHATIC: The patient denies any lumps and bumps around the neck. ENDOCRINE: Denies any thyroid disorders. Denies any blood sugar glucose intolerance. RESPIRATORY: Denies shortness of breath including chronic cough. CARDIOVASCULAR: Denies history of chest pain with exertion. GASTROINTESTINAL: Denies regurgitation of bile at night as well as intermittent nausea. No blood in stools. GENITOURINARY: Denies any blood in urine or increased urinary frequency. MUSCULOSKELETAL: Denies current joint arthritis. NEUROLOGIC: Denies any numbness or tingling along the distal extremities. No seizure disorders or headaches. PSYCHIATRIC: Has depressive disorder. HEMATOLOGIC: Denies any abnormal bleeding or bruising. PHYSICAL EXAMINATION: VITALS: Reviewed. GENERAL: Well-developed and in no acute distress. Pleasant. HEENT: No sclera icterus. Extraocular movements grossly intact. Moist buccal mucosa. Head is atraumatic, normocephalic. Hears conversational speech. No nasal drainage. NECK: Supple without lymphadenopathy. No JV distention. CHEST: Non-labored respirations and equal bilateral excursions. CARDIOVASCULAR: Regular rate and rhythm. Palpable 2+ radial pulses. ABDOMEN: Soft, tender at the right lower quadrant without guarding. MUSCULOSKELETAL: No clubbing, cyanosis or edema. NEUROLOGIC: No focal or lateralizing signs. PSYCH: Appropriate affect. Alert and oriented to person, place and time. SKIN: Well perfused. Good skin turgor. LABS: Reviewed. White blood cell count elevated over 17,000. STUDIES: CT of the abdomen and pelvis reviewed with findings consistent with appendicitis. ASSESSMENT: 1. Right lower quadrant pain. 2. Appendicitis 3. Leukocytosis. 4. Morbid obesity due to excess calories, BMI 36.6 PLAN: 1. I have discussed benefits and risks of robotic appendectomy. 2. Bilateral SCDs. 3. Antibiotics intravenous to address moderate leukocytosis Thank you very much for allowing me to participate in the care of your patient. Past Medical History Additional Past Medical History / Comment(s): Migraines, pre eclampsia History of Any Multi-Drug Resistant Organisms: MRSA Date of last positivie culture/infection: 05/18/16 MDRO Source:: RIGHT LEG Past Surgical History: Section, Cholecystectomy Past Anesthesia/Blood Transfusion Reactions: No Reported Reaction Past Psychological History: Anxiety, Depression Smoking Status: Never smoker Past Alcohol Use History: Occasional Past Drug Use History: None Reported Medications and Allergies Home Medications Medication Instructions Recorded Confirmed Type Omeprazole 20 mg PO DAILY 10/23/16 11/19/23 History Aliyah 24 Fe 1 tab PO DAILY 11/19/23 11/19/23 History Venlafaxine HCl ER [Effexor Xr] 150 mg PO DAILY 11/19/23 11/19/23 History Allergies Allergy/AdvReac Type Severity Reaction Status Date / Time Penicillins Allergy Rash/Hives Verified 11/19/23 07:14 Surgical - Exam Vital Signs Temp Pulse Resp BP Pulse Ox 99 F 90 18 165/107 97 11/18/23 20:56 11/18/23 20:56 11/18/23 20:56 11/18/23 20:56 11/18/23 20:56 Results - Labs 11/18/23 21:23 11/18/23 21:23 Abnormal Lab Results - Last 24 Hours (Table) 11/18/23 11/18/23 11/18/23 Range/Units 21:23 21:23 21:23 WBC 17.9 H (3.8-10.6) k/uL RBC 5.51 H (3.80-5.40) m/uL MCV 78.0 L (80.0-100.0) fL Chloride 97 L (98-107) mmol/L Glucose 130 H (74-99) mg/dL AST 38 H (14-36) U/L ALT 64 H (4-34) U/L Total Protein 8.4 H (6.3-8.2) g/dL Urine Appearance Cloudy H (Clear) Urine Protein Trace H (Negative) Urine Blood Trace H (Negative) Ur Leukocyte Esterase Moderate H (Negative) Urine WBC 12 H (0-5) /hpf Ur Squamous Epith Cells 5 H (0-4) /hpf Urine Bacteria Rare H (None) /hpf Urine Mucus Few H (None) /hpf Diabetes panel 11/18/23 Range/Units 21:23 Sodium 139 (137-145) mmol/L Potassium 3.5 (3.5-5.1) mmol/L Chloride 97 L (98-107) mmol/L Carbon Dioxide 27 (22-30) mmol/L BUN 10 (7-17) mg/dL Creatinine 0.71 (0.52-1.04) mg/dL Glucose 130 H (74-99) mg/dL Calcium 10.1 (8.4-10.2) mg/dL AST 38 H (14-36) U/L ALT 64 H (4-34) U/L Alkaline Phosphatase 105 (38-126) U/L Total Protein 8.4 H (6.3-8.2) g/dL Albumin 4.5 (3.5-5.0) g/dL Calcium panel 11/18/23 Range/Units 21:23 Calcium 10.1 (8.4-10.2) mg/dL Albumin 4.5 (3.5-5.0) g/dL Pituitary panel 11/18/23 Range/Units 21:23 Sodium 139 (137-145) mmol/L Potassium 3.5 (3.5-5.1) mmol/L Chloride 97 L (98-107) mmol/L Carbon Dioxide 27 (22-30) mmol/L BUN 10 (7-17) mg/dL Creatinine 0.71 (0.52-1.04) mg/dL Glucose 130 H (74-99) mg/dL Calcium 10.1 (8.4-10.2) mg/dL Adrenal panel 11/18/23 Range/Units 21:23 Sodium 139 (137-145) mmol/L Potassium 3.5 (3.5-5.1) mmol/L Chloride 97 L (98-107) mmol/L Carbon Dioxide 27 (22-30) mmol/L BUN 10 (7-17) mg/dL Creatinine 0.71 (0.52-1.04) mg/dL Glucose 130 H (74-99) mg/dL Calcium 10.1 (8.4-10.2) mg/dL Total Bilirubin 0.4 (0.2-1.3) mg/dL AST 38 H (14-36) U/L ALT 64 H (4-34) U/L Alkaline Phosphatase 105 (38-126) U/L Total Protein 8.4 H (6.3-8.2) g/dL Albumin 4.5 (3.5-5.0) g/dL
[2023-11-19] MEDS ORDERED: IV FLUID CONTINUATION 1,000 ML IV ONE (18:08)
[2023-11-19] MEDS ORDERED: ROCURONIUM 10 MG/ML (5 ML VIAL) IV ONE (18:45)
[2023-11-19] MEDS ORDERED: LIDOCAINE 1% INJ 10MG/ML (20 ML MDV) ONE (18:45)
[2023-11-19] MEDS ORDERED: KETOROLAC 30 MG/ML 1 ML VIAL ONE (18:45)
[2023-11-19] MEDS ORDERED: MIDAZOLAM 2 MG/2 ML VIAL ONE (18:45)
[2023-11-19] MEDS ORDERED: PROPOFOL 10 MG/ML 20 ML VIAL IV ONE (18:45)
[2023-11-19] MEDS ORDERED: SUCCINYLCHOLINE CHLORIDE 200 MG/10 ML VIAL IV ONE (18:45)
[2023-11-19] MEDS ORDERED: GLYCOPYRROLATE 0.2 MG/ML 2 ML VIAL ONE (18:45)
[2023-11-19] MEDS ORDERED: DEXAMETHASONE SOD PHOSPHATE 4 MG/ML 1 ML VIAL ONE (18:45)
[2023-11-19] MEDS ORDERED: fentaNYL (PF) 50 MCG/ML 2 ML AMP ONE (18:45)
[2023-11-19] MEDS ORDERED: NEOSTIGMINE 1 MG/ML 10 ML VIAL ONE (18:45)
[2023-11-19] MEDS ORDERED: LIDOCAINE 2%-EPI 1:100,000 20 ML VIAL SQ ONE (19:12)
[2023-11-19] MEDS ORDERED: BUPIVACAINE (PF) 0.25% 30 ML VIAL SQ ONE (19:12)
[2023-11-19] MEDS ORDERED: LACTATED RINGERS 1,000 ML IV ONE (19:14)
[2023-11-19] MEDS ORDERED: HYDROmorphone 1 MG/ML 1 ML SYRINGE IVP PRN (20:00)
[2023-11-19] MEDS ORDERED: HYDROcodone/APAP 5-325MG 1 EACH TAB PO PRN ×2 (20:00)
--- NOTE | 2023-11-19 20:06 | P.OP ---
Date of Procedure: 11/19/23 Description of Procedure: SURGEON: DAVON OLEARY MD Preoperative Diagnosis: 1. Acute appendicitis 2. Morbid obesity due to excess calories BMI 36.6 3. Depressive disorder 4. Gastroesophageal reflux disease Postoperative Diagnosis: 1. Acute appendicitis Procedure(s) Performed: 1. Robotic-assisted daVinci Xi laparoscopic appendectomy Anesthesia: GETA, local Estimated Blood Loss (ml): 20 Pathology: other (appendix) Condition: stable Disposition: floor Operative Findings: 1. Acute appendicitis without rupture with periappendicitis 2. Terminal ileum unremarkable 3. Cecum unremarkable 4. Intra-abdominal adhesions INDICATIONS: The patient is a 33-year-old female who presents with acute appendicitis. Benefits and risks, including infection, open surgery, and bleeding for additional surgery was discussed at length. Informed consent was obtained. All questions of the patient and family were answered. DESCRIPTION: The patient was transferred to the operating room and placed in supine position. The patient had previously voided. The abdomen was then prepped and draped in standard sterile fashion as Ioban was placed along the abdomen to minimize any contamination of skin floor. After a timeout protocol was performed, attention was then brought to the left upper quadrant whereby a 0 degree 5 mm laparoscopic trocar entry was performed. The abdominal cavity was entered and insufflated to 12 mmHg pressure, which was tolerated well. Diagnostic laparoscopy demonstrated no injury to bowel, viscera or mesentery. Next a robotic 8-mm trocar was placed along the left lower quadrant, 10-cm lateral to the midline. A 12 mm port was placed along the left upper quadrant and another 8-mm port left lateral abdominal wall. Ports were placed 8 cm apart from each other including 15-20 cm away from the target anatomy of the right pelvis. The patient was then placed in Trendelenburg position, at least 21 down and right side up at least 7. The robotic da Kirsten XI system was primed and docked from the left side of the patient. Using atraumatic graspers and vessel sealer, the robotic system was docked and primed as described. Instruments were interchanged by the assistant producer including graspers, robotic stapler and vessel sealer. Next, attention was brought to identify the cecum. A systematic view within the abdominal cavity was started with the small bowel which was unremarkable. The base of the cecum was unremarkable. The appendix was retrocecal coursing towards right upper quadrant behind the ascending colon with additional dissection required. The body of the appendix was moderately dilated with moderate periappendicitis. No perforation was identified. The appendix was dissected free from its surrounding tissues. Blue 45 mm robotic staple loads were fired along the base of the appendix. The staple line was hemostatic. Hemostasis was checked prior to undocking the robot. The robot was undocked. I re-scrubbed into the case. The specimen was removed from the abdominal cavity with an Endo Catch bag through the 12 mm trocar at the left upper quadrant. All instruments and pneumoperitoneum were evacuated from the abdominal cavity. Local anesthetic was infiltrated to all wounds for postop analgesia. All incisions were also cleansed with diluted hydrogen peroxide. The incisions were closed with 4-0 Monocryl. Exofin glue was applied to the rest of the skin incisions. The patient had tolerated the procedure well. The patient was extubated successfully. The patient was transferred to the postanesthesia care unit in stable condition.
[2023-11-19] MEDS: HEPARIN SODIUM,PORCINE 5,000 UNIT/ML 1 ML VIAL SQ SCH (21:36)
[2023-11-20] MEDS: KETOROLAC 15 MG/ML 1 ML VIAL IVP SCH ×2 (00:20→05:33)
[2023-11-20] MEDS: metroNIDAZOLE-NS PMX 500 MG in SALINE 1 100ML.BAG IVPB SCH ×2 (00:21→08:44)
[2023-11-20 04:59] VITALS: RESP 18
[2023-11-20] MEDS: SODIUM CHLORIDE 0.9% 1,000 ML IV SCH (05:37)
[2023-11-20] MEDS ORDERED: PANTOPRAZOLE 40 MG TABLET PO SCH (07:30)
[2023-11-20 08:40] LABS: Basophils # (A) 0.02 X 10*3/uL (0.00-0.10); Basophils % (A) 0.2 %; Eosinophils # (A) 0 X 10*3/uL (0.04-0.35); Eosinophils % (A) 0 %; HCT 39.7 % (37.2-46.3); HGB 12.3 g/dL (12.0-15.0); Lymphocytes # (A) 1.12 X 10*3/uL (0.90-5.00); Lymphocytes % (A) 12.4 %; MCH 24.7 pg (27.0-32.0); MCV 79.7 FL (80.0-97.0); Mean Platelet Volume 12.4 FL (9.5-12.2); Monocytes % (A) 1.1 %; NRBC Per 100 WBC 0 X 10*3/uL (0.00-0.01); Neutrophils # (A) 7.78 X 10*3/uL (1.80-7.70); Neutrophils % (A) 85.9 %; Platelet Count 262 X 10*3/uL (140-440); RBC 4.98 X 10*6/uL (4.10-5.20); RDW 14.6 % (11.5-14.5); WBC 9.06 X 10*3/uL (4.50-10.00)
[2023-11-20 08:41] VITALS: BP 150/93; PULSE 69; TEMP 97.9
[2023-11-20] MEDS: HEPARIN SODIUM,PORCINE 5,000 UNIT/ML 1 ML VIAL SQ SCH (08:44)
[2023-11-20] MEDS ORDERED: VENLAFAXINE HCL ER 150 MG CAP PO SCH (09:00)
--- NOTE | 2023-11-29 20:48 | P.DS ---
Providers Date of admission: 11/18/23 23:34 Expected date of discharge: 11/20/23 Attending physician: Tamanna Castro Primary care physician: Simon Sales [facility] Course: Postoperative Diagnosis: 1. Acute appendicitis 2. Morbid obesity due to excess calories BMI 36.6 3. Depressive disorder 4. Gastroesophageal reflux disease COURSE: The patient is a 33-year-old female who presented with acute appendicitis. She underwent appendectomy. Postoperatively, leukocytosis resolved after IV antibiotics. Pain was tolerable. Patient was stable for discharge. Discharge instructions were mobilized. Procedures: Procedure(s) Performed: 1. Robotic-assisted daVinci Xi laparoscopic appendectomy Anesthesia: GETA, local Estimated Blood Loss (ml): 20 Pathology: other (appendix) Condition: stable Disposition: floor Operative Findings: 1. Acute appendicitis without rupture with periappendicitis 2. Terminal ileum unremarkable 3. Cecum unremarkable 4. Intra-abdominal adhesions Patient Condition at Discharge: Stable Plan - Discharge Summary Discharge Rx Participant: No New Discharge Prescriptions: New Simethicone [Gas-X] 125 mg PO AC-TID PRN #20 capsule PRN Reason: Pain Ibuprofen [Motrin] 600 mg PO Q8HR PRN #30 tab PRN Reason: Pain Acetaminophen Tab [Tylenol Tab] 1,000 mg PO Q6HR PRN #30 tablet PRN Reason: Pain Continue Omeprazole 20 mg PO DAILY Aliyah 24 Fe 1 tab PO DAILY Venlafaxine HCl ER [Effexor XR] 150 mg PO DAILY Discharge Medication List Omeprazole 20 mg PO DAILY 10/23/16 [History] Aliyah 24 Fe 1 tab PO DAILY 11/19/23 [History] Venlafaxine HCl ER [Effexor XR] 150 mg PO DAILY 11/19/23 [History] Acetaminophen Tab [Tylenol Tab] 1,000 mg PO Q6HR PRN #30 tablet 11/20/23 [Rx] Ibuprofen [Motrin] 600 mg PO Q8HR PRN #30 tab 11/20/23 [Rx] Simethicone [Gas-X] 125 mg PO AC-TID PRN #20 capsule 11/20/23 [Rx] Follow up Appointment(s)/Referral(s): Simon Sales DO [Primary Care Provider] - 1-2 days Tamanna Castro MD [STAFF PHYSICIAN] - 11/24/23 5:00 pm (TELEHEALTH) Patient Instructions/Handouts: Laparoscopic Appendectomy (DC) Activity/Diet/Wound Care/Special Instructions: TELEHEALTH - DR WILL CALL YOU BETWEEN 8 am to 8 pm Recommend low-fat diet for the next 2 days. No lifting over 10 pounds in 2 weeks until DEC 04March shower. No bath tub soaks for two weeks until DEC 04 Diet as tolerated. Use Tylenol, simethicone and ibuprofen or Aleve scheduled for the next 24-48 hours for best pain relief. Use ice along incisions for today to prevent swelling. Discharge Disposition: HOME SELF-CARE
== END 2023-11-20 13:35 | disposition home or self-care (01) ==
LOC: EC 19:17 → 6NMEDSUR 23:34
PROVIDERS: ADMIT Surgery Plastic and Reconstructive Surgery; ATTEND Surgery Plastic and Reconstructive Surgery
DX: K35.80 Unspecified acute appendicitis (principal); E66.01 Morbid (severe) obesity due to excess calories; F32.A Depression, unspecified; K21.9 Gastro-esophageal reflux disease without esophagitis; Z68.36 Body mass index [BMI] 36.0-36.9, adult; K56.50 Intestinal adhesions [bands], unspecified as to partial versus complete obstruction; F41.9 Anxiety disorder, unspecified; Z86.14 Personal history of Methicillin resistant Staphylococcus aureus infection; Z90.49 Acquired absence of other specified parts of digestive tract; Z79.899 Other long term (current) drug therapy; Z88.0 Allergy status to penicillin
CPT/HCPCS: 44970; S2900; 36415; 74177; 80053; 81001; 81025; 82150; 83605; 83690; 85025; 85027; 87040; 87086; 88304; 96374; 96375; 96376; 99285

== ENCOUNTER 2024-04-06 20:20 | Emergency (ER) | payer BC ==
[2024-04-06 20:48] VITALS: RESP 18
--- NOTE | 2024-04-06 21:28 | ED ---
General Adult HPI - General Chief complaint: Vaginal Bleeding Stated complaint: 10 wks preg, bleeding Time Seen by Provider: 04/06/24 21:00 Source: patient, RN notes reviewed Mode of arrival: ambulatory Limitations: no limitations - History of Present Illness Initial comments: 33-year-old G2, P1 female presents to the emergency department for evaluation of vaginal bleeding in . Patient states that she was 9 weeks, 4 days . She notes that about 1 hour prior to arrival the patient started experiencing vaginal bleeding. She states that it is fairly minimal. She does report some blood in the toilet and on a pad. She admits to intermittent cramping over the past 2 to 3 weeks. She states that this is minimal. She follows with Dr. Simon. She states that 1 week ago she was started on labetalol for her elevated blood pressure. She does have a history of preeclampsia in her prior . She denies urinary frequency, dysuria, significant abdominal pain. - Related Data Home Medications Medication Instructions Recorded Confirmed Omeprazole 20 mg PO DAILY 10/23/16 11/19/23 Aliyah 24 Fe 1 tab PO DAILY 11/19/23 11/19/23 Venlafaxine HCl ER [Effexor XR] 150 mg PO DAILY 11/19/23 11/19/23 Previous Rx's Medication Instructions Recorded Acetaminophen Tab [Tylenol Tab] 1,000 mg PO Q6HR PRN #30 tablet 11/20/23 Ibuprofen [Motrin] 600 mg PO Q8HR PRN #30 tab 11/20/23 Simethicone [Gas-X] 125 mg PO AC-TID PRN #20 capsule 11/20/23 Allergies Allergy/AdvReac Type Severity Reaction Status Date / Time Penicillins Allergy Rash/Hives Verified 04/06/24 20:23 Review of Systems ROS Statement: Those systems with pertinent positive or pertinent negative responses have been documented in the HPI. ROS Other: All systems not noted in ROS Statement are negative. Past Medical History Additional Past Medical History / Comment(s): Migraines, pre eclampsia History of Any Multi-Drug Resistant Organisms: MRSA Date of last positivie culture/infection: 05/18/16 MDRO Source:: RIGHT LEG Past Surgical History: Section, Cholecystectomy Past Anesthesia/Blood Transfusion Reactions: No Reported Reaction Past Psychological History: Anxiety, Depression Smoking Status: Never smoker Past Alcohol Use History: Occasional Past Drug Use History: None Reported General Exam Limitations: no limitations General appearance: alert, in no apparent distress Head exam: Present: atraumatic, normocephalic, normal inspection Eye exam: Present: normal appearance, PERRL, EOMI. Absent: scleral icterus, conjunctival injection, periorbital swelling ENT exam: Present: normal exam, mucous membranes moist Respiratory exam: Present: normal lung sounds bilaterally. Absent: respiratory distress, wheezes, rales, rhonchi, stridor Cardiovascular Exam: Present: regular rate, normal rhythm, normal heart sounds. Absent: systolic murmur, diastolic murmur, rubs, gallop, clicks GI/Abdominal exam: Present: soft, normal bowel sounds. Absent: distended, tenderness, guarding, rebound, rigid Extremities exam: Present: normal inspection, full ROM, normal capillary refill. Absent: tenderness, pedal edema, joint swelling, calf tenderness Back exam: Present: normal inspection Neurological exam: Present: alert, oriented X3 Psychiatric exam: Present: normal affect, normal mood Skin exam: Present: warm, dry, intact, normal color. Absent: rash Course Vital Signs 04/06/24 04/06/24 04/06/24 20:21 20:50 21:23 Temperature 98.6 F Pulse Rate 86 88 82 Respiratory 18 18 18 Rate Blood Pressure 179/103 178/101 142/86 O2 Sat by Pulse 100 97 98 Oximetry 04/06/24 23:21 Temperature 98.0 F Pulse Rate 74 Respiratory 18 Rate Blood Pressure 145/88 O2 Sat by Pulse 96 Oximetry Medical Decision Making - Medical Decision Making Was pt. sent in by a medical professional or institution (Dr. PA, PREVENTIVE MAINTENANCE ENGINEER, urgent care, hospital, or fdc...) When possible be specific @ -No Did you speak to anyone other than the patient for history (EMS, parent, family, police, friend...)? What history was obtained from this source @ -No Did you review nursing and triage notes (agree or disagree)? Why? @ -I reviewed and agree with nursing and triage notes Were old charts reviewed (outside hosp., previous admission, EMS record, old EKG, old radiological studies, urgent care reports/EKG's, fdc records)? Report findings @ -No old charts were reviewed Differential Diagnosis (chest pain, altered mental status, abdominal pain women, abdominal pain men, vaginal bleeding, weakness, fever, dyspnea, syncope, headache, dizziness, GI bleed, back pain, seizure, CVA, palpatations, mental health, musculoskeletal)? @ -Differential Vaginal Bleeding: Spontaneous , threatened , molar , ectopic , bloody show, incompetent cervix, abruptioplacenta, placenta previa, uterine rupture, dysfunctional uterine bleeding, hemorrhage, uterine fibroids, this is not meant to be an all-inclusive list. EKG interpreted by me (3pts min.). @ -None X-rays interpreted by me (1pt min.). @ -None done CT interpreted by me (1pt min.). @ -None done U/S interpreted by me (1pt. min.). @ - ultrasound obtained which shows single live intrauterine measuring 9 weeks 2 days, subchorionic hematoma measuring [id number] What testing was considered but not performed or refused? (CT, X-rays, U/S, labs )? Why? @ -None What meds were considered but not given or refused? Why? @ -None Did you discuss the management of the patient with other professionals (professionals i.e. , PA, PREVENTIVE MAINTENANCE ENGINEER, lab, RT, psych nurse, geriatric social worker, sightseeing guide, teacher, public information officer, patient case manager)? Give summary @ -No Was smoking cessation discussed for >3mins.? @ -No Was critical care preformed (if so, how long)? @ -No Were there social determinants of health that impacted care today? How? (Homelessness, low income, unemployed, alcoholism, drug addiction, transportation, low edu. Level, literacy, decrease access to med. care, fdc, rehab)? @ -No Was there de-escalation of care discussed even if they declined (Discuss DNR or withdrawal of care, Hospice)? DNR status @ -No What co-morbidities impacted this encounter? (DM, HTN, Smoking, COPD, CAD, Cancer, CVA, ARF, Chemo, Hep., AIDS, mental health diagnosis, sleep apnea, morbid obesity)? @ -None Was patient admitted / discharged? Hospital course, mention meds given and route, prescriptions, significant lab abnormalities, going to OR and other pertinent info. @ -Discharged. Patient presented to the emergency department for evaluation of vaginal bleeding in . Laboratory studies obtained. CBC unremarkable, normal coagulation studies, unremarkable; quantitative hCG 67,582; UA shows large blood, greater than 182 red blood cells, negative for nitrate, leukocyte esterase. ultrasound was obtained which shows a single live intrauterine with heart rate of 176 measuring 9 weeks 2 days, there is a subchorionic hematoma present. Discussed findings with patient, recommend pelvic rest and follow up with Dr. Simon. Patient understanding and agreeable with plan. Patient stable at time of discharge. Case discussed with Dr. Andersen Undiagnosed new problem with uncertain prognosis? @ -No Drug Therapy requiring intensive monitoring for toxicity (Heparin, Nitro, Insulin, Cardizem)? @ -No Were any procedures done? @ -No Diagnosis/symptom? @ -Subchorionic hematoma Acute, or Chronic, or Acute on Chronic? @ -acute Uncomplicated (without systemic symptoms) or Complicated (systemic symptoms)? @ -uncomplicated Side effects of treatment? @ -No Exacerbation, Progression, or Severe Exacerbation? @ -No Poses a threat to life or bodily function? How? (Chest pain, [place], CO, pneumonia, PE, COPD, DKA, ARF, appy, cholecystitis, CVA, Diverticulitis, Homicidal, Suicidal, threat to staff... and all critical care pts) @ -No - Lab Data Result diagrams: 04/06/24 21:10 04/06/24 21:10 Lab Results 04/06/24 04/06/24 04/06/24 Range/Units 21:10 21:10 21:10 WBC 9.8 (3.8-10.6) k/uL RBC 4.90 (3.80-5.40) m/uL Hgb 12.1 (11.4-16.0) gm/dL Hct 38.1 (34.0-46.0) % MCV 77.9 L (80.0-100.0) fL MCH 24.8 L (25.0-35.0) pg MCHC 31.8 (31.0-37.0) g/dL RDW 15.0 (11.5-15.5) % Plt Count 270 (150-450) k/uL MPV 8.8 Neutrophils % 66 % Lymphocytes % 26 % Monocytes % 4 % Eosinophils % 2 % Basophils % 1 % Neutrophils # 6.5 (1.3-7.7) k/uL Lymphocytes # 2.6 (1.0-4.8) k/uL Monocytes # 0.4 (0-1.0) k/uL Eosinophils # 0.2 (0-0.7) k/uL Basophils # 0.1 (0-0.2) k/uL PT 10.2 (10.0-12.5) sec INR 0.9 (<1.2) APTT 25.1 (22.0-30.0) sec Sodium 136 L (137-145) mmol/L Potassium 3.9 (3.5-5.1) mmol/L Chloride 104 (98-107) mmol/L Carbon Dioxide 21 L (22-30) mmol/L Anion Gap 11 mmol/L BUN 7 (7-17) mg/dL Creatinine 0.60 (0.52-1.04) mg/dL Est GFR (CKD-EPI)AfAm >90 (>60 ml/min/1.73 sqM) Est GFR (CKD-EPI)NonAf >90 (>60 ml/min/1.73 sqM) Glucose 109 H (74-99) mg/dL Calcium 9.2 (8.4-10.2) mg/dL Total Bilirubin 0.3 (0.2-1.3) mg/dL AST 20 (14-36) U/L ALT 17 (4-34) U/L Alkaline Phosphatase 79 (38-126) U/L Total Protein 7.1 (6.3-8.2) g/dL Albumin 4.0 (3.5-5.0) g/dL HCG, Quant 96700.3 mIU/mL Urine Color Urine Appearance (Clear) Urine pH (5.0-8.0) Ur Specific Roland (1.001-1.035) Urine Protein (Negative) Urine Glucose (UA) (Negative) Urine Ketones (Negative) Urine Blood (Negative) Urine Nitrite (Negative) Urine Bilirubin (Negative) Urine Urobilinogen (<2.0) mg/dL Ur Leukocyte Esterase (Negative) Urine RBC (0-5) /hpf Urine WBC (0-5) /hpf Ur Squamous Epith Cells (0-4) /hpf Calcium Oxalate Crystal (None) /hpf Urine Mucus (None) /hpf Blood Type Blood Type Recheck Bld Type Recheck Status 04/06/24 04/06/24 Range/Units 21:10 21:16 WBC (3.8-10.6) k/uL RBC (3.80-5.40) m/uL Hgb (11.4-16.0) gm/dL Hct (34.0-46.0) % MCV (80.0-100.0) fL MCH (25.0-35.0) pg MCHC (31.0-37.0) g/dL RDW (11.5-15.5) % Plt Count (150-450) k/uL MPV Neutrophils % % Lymphocytes % % Monocytes % % Eosinophils % % Basophils % % Neutrophils # (1.3-7.7) k/uL Lymphocytes # (1.0-4.8) k/uL Monocytes # (0-1.0) k/uL Eosinophils # (0-0.7) k/uL Basophils # (0-0.2) k/uL PT (10.0-12.5) sec INR (<1.2) APTT (22.0-30.0) sec Sodium (137-145) mmol/L Potassium (3.5-5.1) mmol/L Chloride (98-107) mmol/L Carbon Dioxide (22-30) mmol/L Anion Gap mmol/L BUN (7-17) mg/dL Creatinine (0.52-1.04) mg/dL Est GFR (CKD-EPI)AfAm (>60 ml/min/1.73 sqM) Est GFR (CKD-EPI)NonAf (>60 ml/min/1.73 sqM) Glucose (74-99) mg/dL Calcium (8.4-10.2) mg/dL Total Bilirubin (0.2-1.3) mg/dL AST (14-36) U/L ALT (4-34) U/L Alkaline Phosphatase (38-126) U/L Total Protein (6.3-8.2) g/dL Albumin (3.5-5.0) g/dL HCG, Quant mIU/mL Urine Color Yellow Urine Appearance Cloudy H (Clear) Urine pH 5.5 (5.0-8.0) Ur Specific Roland 1.031 (1.001-1.035) Urine Protein 1+ H (Negative) Urine Glucose (UA) Negative (Negative) Urine Ketones Negative (Negative) Urine Blood Large H (Negative) Urine Nitrite Negative (Negative) Urine Bilirubin Negative (Negative) Urine Urobilinogen <2.0 (<2.0) mg/dL Ur Leukocyte Esterase Trace H (Negative) Urine RBC >182 H (0-5) /hpf Urine WBC 5 (0-5) /hpf Ur Squamous Epith Cells 4 (0-4) /hpf Calcium Oxalate Crystal Few H (None) /hpf Urine Mucus Moderate H (None) /hpf Blood Type O Positive Blood Type Recheck O Pos Bld Type Recheck Status No Disposition Clinical Impression: Vaginal bleeding during , Subchorionic hematoma Disposition: HOME SELF-CARE Condition: Stable Instructions (If sedation given, give patient instructions): Subchorionic Hemorrhage (ED) Additional Instructions: Please follow up with your ROUGH RICE TENDER. Return to the emergency department for new or worsening symptoms. Is patient prescribed a controlled substance at d/c from ED?: No Referrals: Simon Sales DO [Primary Care Provider] - 1-2 days
[2024-04-06 21:31] LABS: HGB 12.1 gm/dL (11.4-16.0); WBC 9.8 k/uL (3.8-10.6)
[2024-04-06 21:32] LABS: HCT 38.1 % (34.0-46.0); MCH 24.8 pg (25.0-35.0); MCHC 31.8 g/dL (31.0-37.0); MCV 77.9 fL (80.0-100.0); Mean Platelet Volume 8.8; Platelet Count 270 k/uL (150-450)
[2024-04-06 21:33] LABS: Basophils # (A) 0.1 k/uL (0-0.2); Basophils % (A) 1 %; Eosinophils # (A) 0.2 k/uL (0-0.7); Eosinophils % (A) 2 %; Lymphocytes # (A) 2.6 k/uL (1.0-4.8); Lymphocytes % (A) 26 %; Monocytes # (A) 0.4 k/uL (0-1.0); Monocytes % (A) 4 %; Neutrophils # (A) 6.5 k/uL (1.3-7.7); Neutrophils % (A) 66 %
[2024-04-06 21:34] LABS: ALT 17 U/L (4-34); AST 20 U/L (14-36); African American GFR (CKD) >90 (>60 ml/min/1.73 sqM); Alkaline Phosphatase 79 U/L (38-126); Anion Gap 11 mmol/L; Blood Urea Nitrogen 7 mg/dL (7-17); Calcium 9.2 mg/dL (8.4-10.2); Carbon Dioxide 21 mmol/L (22-30); Chloride 104 mmol/L (98-107); Glucose 109 mg/dL (74-99); INR 0.9 (<1.2); Non-African American GFR(CKD) >90 (>60 ml/min/1.73 sqM); Partial Thromboplastin Time 25.1 sec (22.0-30.0); Potassium 3.9 mmol/L (3.5-5.1); Prothrombin Time 10.2 sec (10.0-12.5); Sodium 136 mmol/L (137-145); Total Bilirubin 0.3 mg/dL (0.2-1.3); Total Protein 7.1 g/dL (6.3-8.2)
[2024-04-06 21:38] LABS: Appearance,Urine Cloudy (Clear); Bilirubin,Urine Negative (Negative); Blood,Urine Large (Negative); Calcium Oxalate Crystals,Urine Few /hpf; Color,Urine Yellow; Glucose,Urine (UA) Negative (Negative); Ketones,Urine Negative (Negative); Leukocyte Esterase,Urine Trace (Negative); Mucus,Urine Moderate /hpf; Nitrite,Urine Negative (Negative); PH, Urine 5.5 (5.0-8.0); Protein,Urine 1+ (Negative); RBC,Urine >182 /hpf (0-5); Specific Gravity,Urine 1.031 (1.001-1.035); Squamous Epithelial Cell,Urine 4 /hpf (0-4); Urobilinogen,Urine <2.0 mg/dL (<2.0); WBC,Urine 5 /hpf (0-5)
--- NOTE | 2024-04-06 21:48 | US ---
EXAMINATION TYPE: Transabdominal DATE OF EXAM: 04/06/2024 9:33 PM COMPARISON: NONE CLINICAL INDICATION: Female, 33 years old with history of 10wks, bleeding; bleeding x 1 hour EXAM PERFORMED: Transabdominal (TA) EXAM MEASUREMENTS: GESTATIONAL AGE / DATING Physician Established: (9 weeks/3 days) EDC: 11/06/24 Dates by LMP: LMP unknown Dates by First Scan: No previous this is first scan Dates by Current Scan for: (9 weeks/2 days) EDC: 11/07/24 MATERNAL ANATOMY Uterus: 12.8 x 8.4 x 5.9cm. Hypoechoic area seen anteriorly measuring 4.3 x 4.3 x 3.4cm Right Ovary: 3.2 x 3.0 x 2.6cm Left Ovary: 2.9 x 1.9 x 2.1cm Post CDS / Adnexa: wnl Presence of free fluid: No Presence of corpus luteal cyst: Yes in rt ov measuring 1.4 x 1.5 x 1.3cm Presence of subchorionic bleed: Yes measuring 3.1 x 2.7 x 1.1cm GESTATION / SURVEY CRL: 2.47cm (9 weeks/2 days) MSD: wnl Yolk Sac (normal less than 6mm): 3.4mm Heart Rate: 174 bpm Rhythm: Normal IUP: Viable IUP Date of LMP: unknown Beta HcG (if available): N/A Single live IUP seen measuring 9 weeks 2 days. Subchorionic hemorrhage seen adjacent to the gestation al sac as well as a suspected intramural fibroid. IMPRESSION: 1. Single live intrauterine with calculated ultrasound age of 9 weeks 2 days. 2. Subchorionic hematoma adjacent to the gestational sac. Follow-up with [facility] recommended.
[2024-04-06 22:32] LABS: HCG,Quantitative Serum 67582.3 mIU/mL
[2024-04-06 23:54] VITALS: BP 145/88; PULSE 74; TEMP 98
== END 2024-04-06 23:24 | disposition home or self-care (01) ==
LOC: EC 20:20
DX: O20.8 Other hemorrhage in early pregnancy (principal); Z88.0 Allergy status to penicillin; Z3A.09 9 weeks gestation of pregnancy
CPT/HCPCS: 36415; 76801; 80053; 81001; 84702; 85025; 85610; 85730; 86900; 86901; 99284

== ENCOUNTER 2024-08-14 19:35 | Outpatient (CLI) | payer BC ==
[2024-08-14 20:52] LABS: Appearance,Urine Cloudy (Clear); Bacteria,Urine Occasional /hpf; Bilirubin,Urine Negative (Negative); Blood,Urine Negative (Negative); Budding Yeast,Urine Few /hpf; Color,Urine Yellow; Glucose,Urine (UA) Negative (Negative); Hyaline Casts,Urine 7 /lpf (0-2); Ketones,Urine Negative (Negative); Leukocyte Esterase,Urine Large (Negative); Mucus,Urine Many /hpf; Nitrite,Urine Negative (Negative); PH, Urine 5.5 (5.0-8.0); Protein,Urine 1+ (Negative); RBC,Urine 10 /hpf (0-5); Specific Gravity,Urine 1.033 (1.001-1.035); Squamous Epithelial Cell,Urine 16 /hpf (0-4); Urobilinogen,Urine <2.0 mg/dL (<2.0); WBC,Urine 21 /hpf (0-5)
[2024-08-14 21:26] VITALS: BP 135/72; PULSE 88; RESP 18; TEMP 97.2
--- NOTE | 2024-09-18 02:16 | P.MSEPDOC ---
Presenting Problems - Arrival Data Date of Arrival on Unit: 08/14/24 Time of Arrival on Unit: 19:35 Mode of Transport: Ambulatory - Complaint OB-Reason for Admission/Chief Complaint: Pain, Other Comment: lower abdominal tightness, nausea, SOB, diaphoresis Medical History - Information : 2 Para: 1 Term: 0 : 1 Abortions: Spontaneous or Elective: 0 Number of Living Children: 1 - Gestational Age Gestational Age by ALDEN (wks/days): 28 Weeks and 0 Days - History Complications: Prior , Prior Comment: prior c/s at 34wks due to pre-e Review of Systems - Review of Systems Constitutional: No problems Breast: No problems ENT: No problems Cardiovascular: No problems Respiratory: No problems Gastrointestinal: Pain Genitourinary: No problems Musculoskeletal: No problems Neurological: No problems Skin: No problems Vital Signs - Temperature Temperature: 97.2 F Temperature Source: Temporal Artery Scan - Pulse Pulse Oximetery Pulse Rate: 88 Pulse Assessment Method: Pulse Oximetry - Respirations Respiratory Rate: 18 Oxygen Delivery Method: Room Air O2 Sat by Pulse Oximetry: 99 - Blood Pressure Right Arm Blood Pressure: 135/72 Blood Pressure Mean: 93 Blood Pressure Source: Automatic Cuff Medical Screen Scoring - Assessment - Baby A Baseline FHR: 145 Heart Rate - NICHD Category: Category I (Normal) NST: Reactive Physician Notification - Physician Notified Physician Notified Date: 08/14/24 - Notification Comment Comment: 2011 - Dr. Simon called, report given on maternal c/o constant lower abdominal tightness, nausea, SOB, diaphoresis, and upper abdominal tenderness since 1830 today. Pt was working all day and has not drank fluids as well. Pt has a hx of a 34wk c/s due to pre-e. Upon arrival pt was very diaphoretic and clammy and is no longer now. Her upper abdomen is slightly tender to palpation but soft. BPs 135/72 and 112/53, NST reactive, no cx via TOCO. Orders to send a UA and pt can be d/c'd home if negative. Pt is to keep her next scheduled appointment on thursday. 2099 - Dr. Simon called, report given on UA results (1+ protein, large leukocytes, 10 RBCs, 21 WBCs, 16 squamous, occasional bacteria, many mucus, and few yeast). Pt is feeling better since being in triage but still has some slight abdominal tightness. Orders to d/c pt home with orders to rest, increase oral hydration, and keep her appointment on thursday. Maternal Triage Index - Maternal Triage Index Presenting for scheduled procedure w/no complaint: No - Stat/Priority 1 Stat Priority 1: No - Urgent/Priority 2 Urgent Priority 2: No - Prompt/Priority 3 Prompt Priority 3: No - Non-Urgent/Priority 4 Non-Urgent Priority 4: Yes Criteria Met for Priority 4: 28wks, constant lower abdominal tightness, nausea, SOB, diaphoresis Disposition - Disposition OB Disposition: Discharge to home Discharge Date: 08/14/24 Discharge Time: 21:10 I agree with the RN Medical Screening Exam: Yes Physician's MSE Comment: I have neither seen nor examined the patient. Case reviewed; plan agreed upon as documented in EMR&OBIX.: Yes Diagnosis: RELATED CONDITIONS, UNSPECIFIED, THIRD TRIMESTER
== END 2024-08-14 21:10 | disposition home or self-care (01) ==
LOC: FBPOP 19:35
PROVIDERS: ATTEND Obstetrics & Gynecology
CPT/HCPCS: 59025; 81001; 99213

== ENCOUNTER 2024-10-10 13:42 | Outpatient (CLI) | payer BC ==
[2024-10-10 15:00] LABS: Appearance,Urine Cloudy (Clear); Bacteria,Urine Occasional /hpf; Bilirubin,Urine Negative (Negative); Blood,Urine Negative (Negative); Color,Urine Light Yellow; Glucose,Urine (UA) Negative (Negative); Hyaline Casts,Urine 1 /lpf (0-2); Ketones,Urine Negative (Negative); Leukocyte Esterase,Urine Large (Negative); Mucus,Urine Occasional /hpf; Nitrite,Urine Negative (Negative); PH, Urine 6.5 (5.0-8.0); Protein,Urine Trace (Negative); RBC,Urine 2 /hpf (0-5); Specific Gravity,Urine 1.022 (1.001-1.035); Squamous Epithelial Cell,Urine 5 /hpf (0-4); Urobilinogen,Urine <2.0 mg/dL (<2.0); WBC,Urine 5 /hpf (0-5)
[2024-10-10 15:50] VITALS: BP 131/81; PULSE 77; RESP 16; TEMP 98.2
--- NOTE | 2024-11-13 11:48 | P.MSEPDOC ---
Presenting Problems - Arrival Data Date of Arrival on Unit: 10/10/24 Time of Arrival on Unit: 13:43 Mode of Transport: Ambulatory - Complaint OB-Reason for Admission/Chief Complaint: Other Comment: pt arrived c/o lower constant abd discomfort Medical History - Information : 2 Para: 1 Term: 0 : 1 Abortions: Spontaneous or Elective: 0 Number of Living Children: 1 - Gestational Age Gestational Age by ALDEN (wks/days): 36 Weeks and 1 Days - History Complications: Chronic HTN, Preeclampsia, GDM Comment: history of preeclampsia with previous Review of Systems - Review of Systems Constitutional: No problems Breast: No problems ENT: No problems Cardiovascular: No problems Respiratory: No problems Gastrointestinal: No problems Genitourinary: No problems Musculoskeletal: No problems Neurological: No problems Skin: No problems Vital Signs - Temperature Temperature: 98.2 F Temperature Source: Oral - Pulse Right Brachial Pulse Rate: 77 Pulse Assessment Method: Automatic Cuff - Respirations Respiratory Rate: 16 Oxygen Delivery Method: Room Air - Blood Pressure Right Arm Blood Pressure: 131/81 Blood Pressure Mean: 97 Blood Pressure Source: Automatic Cuff Medical Screen Scoring - Cervical Exam Dilation (cm): 0 Effacement (%): 50 Station: -2 Membranes: Intact - Uterine Contractions Intensity: Mild Resting: Soft to palpation - Assessment - Baby A Baseline FHR: 140 Heart Rate - NICHD Category: Category I (Normal) NST: Reactive Physician Notification - Physician Notified Physician Notified Date: 10/10/24 Physician Notified Time: 14:36 Physician: dr munoz New Order Received: Yes - Notification Comment Comment: may d/c to home Maternal Triage Index - Non-Urgent/Priority 4 Non-Urgent Priority 4: Yes Criteria Met for Priority 4: edc 1215 36 1/7 weeks arrived c/o lower abd constant discomfort. nst done and reactive abd soft to palpate and cervix closed with no bleeding noted. u/a sent to lab Disposition - Disposition OB Disposition: Discharge to home Discharge Date: 10/10/24 Discharge Time: 15:30 I agree with the RN Medical Screening Exam: Yes Physician's MSE Comment: I have neither seen nor examined the patient. Case reviewed; plan agreed upon as documented in EMR&OBIX.: Yes Diagnosis: RELATED CONDITIONS, UNSPECIFIED, THIRD TRIMESTER
== END 2024-10-10 15:35 | disposition home or self-care (01) ==
LOC: FBPOP 13:42
PROVIDERS: ATTEND Obstetrics & Gynecology
DX: O26.893 Other specified pregnancy related conditions, third trimester (principal); R10.30 Lower abdominal pain, unspecified; O10.013 Pre-existing essential hypertension complicating pregnancy, third trimester; O24.419 Gestational diabetes mellitus in pregnancy, unspecified control; O14.93 Unspecified pre-eclampsia, third trimester; Z3A.36 36 weeks gestation of pregnancy; Z88.0 Allergy status to penicillin
CPT/HCPCS: 59025; 81001; 99213

== ENCOUNTER 2024-11-02 09:52 | Inpatient (IN) | payer BC ==
[2024-11-02] MEDS ORDERED: OXYTOCIN 10 UNIT/ML 1 ML VIAL IM PRN (10:19)
[2024-11-02] MEDS ORDERED: METHYLERGONOVINE 0.2 MG/ML 1 ML AMP IM PRN (10:19)
[2024-11-02] MEDS ORDERED: TRANEXAMIC 1,000 MG/100ML-NACL 1,000 MG in EMPTY BAG 1 BAG IV PRN (10:19)
[2024-11-02] MEDS ORDERED: CARBOPROST TROMETHAMINE 250 MCG/ML 1 ML AMP IM PRN (10:19)
[2024-11-02] MEDS ORDERED: miSOPROStoL 200 MCG TAB PO PRN (10:19)
[2024-11-02 10:44] LABS: Basophils % (A) 0 %; Eosinophils % (A) 0 %; Lymphocytes # (A) 1.9 k/uL (1.0-4.8); Lymphocytes % (A) 18 %; MCH 25.9 pg (25.0-35.0); MCHC 33.3 g/dL (31.0-37.0); MCV 77.8 fL (80.0-100.0); Mean Platelet Volume 11.1; Monocytes # (A) 0.4 k/uL (0-1.0); Monocytes % (A) 4 %; Neutrophils % (A) 76 %; Platelet Count 206 k/uL (150-450); RBC 4.24 m/uL (3.80-5.40); RDW 14.3 % (11.5-15.5); WBC 10.5 k/uL (3.8-10.6)
[2024-11-02] MEDS: CITRIC ACID-SODIUM CITRATE 15 ML CUP PO ONE (11:37)
[2024-11-02] MEDS: LACTATED RINGERS 1,000 ML IV ONE (11:38)
[2024-11-02] MEDS: ceFAZolin 3 GM in SODIUM CHLORIDE 0.9% 100 ML IVPB ONE (11:39)
[2024-11-02] MEDS ORDERED: NALBUPHINE 10 MG/ML (10 ML MDV) IV PRN (12:39)
[2024-11-02] MEDS ORDERED: diphenhydrAMINE 50 MG/ML 1 ML VIAL IVP PRN ×2 (12:39→13:08)
[2024-11-02] MEDS ORDERED: HYDROmorphone 0.5 MG/0.5 ML SYRINGE IVP PRN (12:39)
[2024-11-02] MEDS ORDERED: NALOXONE 0.4 MG/ML 1 ML VIAL IV PRN (12:39)
[2024-11-02] MEDS ORDERED: METOCLOPRAMIDE 5 MG/ML 2 ML VIAL IVP PRN (13:08)
[2024-11-02] MEDS ORDERED: diphenhydrAMINE 50 MG CAP PO PRN (13:08)
[2024-11-02] MEDS ORDERED: ZOLPIDEM 5 MG TAB PO PRN (13:08)
[2024-11-02] MEDS ORDERED: SIMETHICONE 80 MG CHEWABLE PO PRN (13:08)
[2024-11-02] MEDS ORDERED: LANOLIN CREAM 1 GM TUBE TOPICAL PRN (13:08)
[2024-11-02] MEDS ORDERED: OXYTOCIN 30 UNITS/500 ML NS 30 UNIT in SALINE 1 500ML.BAG IV SCH (13:15)
--- NOTE | 2024-11-02 13:16 | P.HPOB ---
History of Present Illness H&P Date: 11/02/24 Chief Complaint: 39-3/7 weeks, previous section, requesting repeat Patient is a 34-year-old 2 para 1-0-0-1 admitted at 39-3/7 weeks as established by 7-week ultrasound. She is admitted for repeat low-transverse section having undergone previous low-transverse section. Her has been complicated by chronic hypertension for which she has been maintained on labetalol 100 mg twice daily by mouth with stable blood pressures throughout. She has had a history of previous preeclampsia at 34 weeks which has not evolved during this . She additionally was diagnosed with gestational diabetes and had reportedly normal blood sugars throughout. She had reassuring weekly testing starting at 32 weeks. She additionally has requested permanent sterilization with bilateral salpingectomy. She additionally was found to be group B strep positive. On labor and delivery, all signs are reassuring with a category 1 heart rate tracing. Initial blood pressures were elevated but laboratory workup was negative. Obstetrical history: 2 para 0-1-0-1 with 134-week delivery for preeclampsia at another institution. Current statistics are listed in the history of present illness. EDC of 11/06/2024 was established by a 7-week ultrasound. Laboratory workup demonstrates a blood type of O+ with a negative antibody screen. Rubella status is immune. The remainder of the laboratory workup was within normal limits. Early Glucola was normal but was followed by second trimester elevated glucose tolerance test which was then also followed by an abnormal 3-hour glucose tolerance test to the diagnosis of gestational diabetes. Group B strep status is positive. Gynecologic history: Unremarkable with no history of any infections to include STDs. Review of Systems Review of systems is confined to history of present illness. Past Medical History Past Medical History: Diabetes Mellitus, GERD/Reflux Additional Past Medical History / Comment(s): Migraines, hx pre eclampsia. gestational diabetes this - watching diet and checking blood sugars History of Any Multi-Drug Resistant Organisms: MRSA Date of last positivie culture/infection: 05/18/16 MDRO Source:: RIGHT LEG, face Past Surgical History: Appendectomy, Section, Cholecystectomy Past Anesthesia/Blood Transfusion Reactions: No Reported Reaction Additional Past Anesthesia/Blood Transfusion Reaction / Comment(s): no blood transfusions Past Psychological History: Anxiety, Depression Smoking Status: Never smoker Past Alcohol Use History: None Reported Past Drug Use History: None Reported - Past Family History Father Family Medical History: No Reported History Medications and Allergies Home Medications Medication Instructions Recorded Confirmed Type Labetalol [Trandate] 100 mg PO BID 08/14/24 11/02/24 History Omeprazole [PriLOSEC] 10 mg PO DAILY 08/14/24 11/02/24 History Vit No.179/Iron/Folic 1 tab PO DAILY 08/14/24 11/02/24 History [ Tablet] Venlafaxine HCl [Effexor] 75 mg PO DAILY 08/14/24 11/02/24 History Aspirin [Adult Low Dose Aspirin EC] 81 mg PO DAILY 10/23/24 11/02/24 History Allergies Allergy/AdvReac Type Severity Reaction Status Date / Time Penicillins Allergy Rash/Hives Verified 11/02/24 10:16 Exam Vital Signs Temp Pulse Resp BP Pulse Ox 11/02/24 10:16 97.5 F L 105 H 16 148/92 98 Intake and Output 11/01/24 11/02/24 11/02/24 22:59 06:59 14:59 Other: Weight 122.47 kg In general, this is a well-developed, moderately obese white female in no acute distress. Her heart has a regular rhythm and rate without murmur. Her lungs are clear to auscultation bilateral in all moss. Her abdomen is gravid, nondistended, has normal active bowel sounds, soft, nontender, and without any palpable masses aside from uterine fundus. Her extremities are without any cyanosis, clubbing, or edema and are nontender to palpation bilaterally. Digital cervical examination is deferred. Results Result Diagrams: 11/02/24 10:34 Abnormal Lab Results - Last 24 Hours (Table) 11/02/24 Range/Units 10:34 Hgb 11.0 L (11.4-16.0) gm/dL Hct 33.0 L (34.0-46.0) % MCV 77.8 L (80.0-100.0) fL Neutrophils # 8.0 H (1.3-7.7) k/uL Assessment and Plan (1) Family planning Current Visit: Yes Status: Acute Code(s): Z30.09 - ENCOUNTER FOR OTH GENERAL CNSL AND ADVICE ON CONTRACEPTION SNOMED Code(s): 482124140 (2) Previous section Current Visit: Yes Status: Acute Code(s): Z98.891 - HISTORY OF UTERINE SCAR FROM PREVIOUS SURGERY SNOMED Code(s): 658401058 (3) Term Current Visit: Yes Status: Acute Code(s): Z34.90 - ENCNTR FOR SUPRVSN OF NORMAL , UNSP, UNSP TRIMESTER SNOMED Code(s): 28017718 Plan: Patient is to be taken to the operating room for repeat low-transverse section with intraoperative bilateral salpingectomy. The risks and complication s have been thoroughly discussed and she has understood and agreed to proceed.
--- NOTE | 2024-11-02 13:23 | P.OP ---
Date of Procedure: 11/02/24 Preoperative Diagnosis: #1. 39-3/7 weeks, previous section, requesting repeat #2. Chronic hypertension #3. Gestational diabetes #4. Undesired fertility Postoperative Diagnosis: Same Procedure(s) Performed: #1. Repeat low-transverse section #2. Intraoperative bilateral salpingectomy Anesthesia: spinal Surgeon: Nolberto Simon Repairer Finished Metal #1: Estela Villarreal Estimated Blood Loss (ml): 600 IV fluids (ml): 900 Urine output (ml): 50 Pathology: other (Bilateral fallopian tubes) Condition: stable Disposition: floor Operative Findings: See H&P for conditions leading to section. The patient was taken to the operating room where she was delivered of a viable baby girl with Apgars of 4 at 1 minute, 5 at 8 minutes, and 8 at 10 minutes. Weight is pending as the infant is in the special care nursery for evaluation. The placenta was delivered manually, intact, and grossly normal with a grossly normal three- vessel cord. The uterus, tubes, and ovaries were entirely normal to inspection. The bilateral fallopian tubes were removed from their fimbriated end to their cornual insertion. There was a moderate amount of vascularity just immediately beneath the fallopian tube on both sides. Description of Procedure: Patient was prepped and draped in usual fashion after spinal anesthesia was administered by the anesthesiologist. A Pfannenstiel incision was made through her pre-existing scar and extended into the abdominal cavity without difficulty. There was noted to be a fair amount of diastases recti particularly on the left side as the left rectus muscle was found fairly significantly laterally. The bladder peritoneum was elevated, incised, and reflected distally as it had scarred relatively high. A 2 cm incision was made in the transverse plane of the lower uterine segment to enter the uterus at which time clear fluid was noted. The incision was extended both directions using the bandage scissors. The head was delivered up and through the incision where the nose and mouth were thoroughly suction. The remainder of the infant was delivered onto the field where the cord was doubly clamped, cut, and the passed res uscitative measures with weight and Apgars as noted above (weight is still pending). A segment of cord was doubly clamped, cut, and set aside should cord gases become necessary. The placenta was delivered manually and intact as noted above. The uterus was exteriorized and the anterior cavity the uterus swept of any remaining placental or membranous fragments. The margins of the uterine incision were grasped with Rodriguez clamps and the uterus closed in a single running locking stitch of 0 chromic catgut from margin to margin. Hemostasis appeared to be excellent. The posterior cul-de-sac was suctioned with a guard followed by laparotomy sponge. After confirming with the patient that she did wish to have her fallopian tubes removed, the left fallopian tube was grasped with a Rodriguez current and elevated and removed from the fimbriated end to the cornual insertion using a LigaSure device. A similar operation was carried out on the right side without difficulty. Both fallopian tubes were sent to pathology as a single specimen. The uterus was replaced within the abdominal cavity and the gutters were swept of any remaining blood, fluid, or clot. Reexamination of the uterine incision demonstrated excellent hemostasis. The parietal peritoneum was loosely reapproximated and the layer of muscles examined and found to be hemostatic. The fascia was closed with a single running stitch of 0 Vicryl proceeding from margin to margin. The subcutaneous tissues were made hemostatic with the Bovie then reapproximated with a running stitch of 3-0 plain catgut. The skin was reapproximated with a running subcuticular stitch of 4-0 Vicryl followed by half-inch Steri-Strips placed with Mastisol. Estimated blood loss for the case was approximately 600 mL. There were no complications. All sponge, instrument, and needle counts were correct. The patient tolerated the procedure well and proceeded to the recovery room in stable condition. Both mother and infant are resting comfortably in recovery though the has been taken to the special care nursery where she is recovering and being monitored for early initial issues with respirations.
[2024-11-02 14:03] LABS: ALT 9 U/L (4-34); AST 19 U/L (14-36); African American GFR (CKD) >90 (>60 ml/min/1.73 sqM); Blood Urea Nitrogen 6 mg/dL (7-17); Glucose 98 mg/dL (74-99); Non-African American GFR(CKD) >90 (>60 ml/min/1.73 sqM); Uric Acid 5.2 mg/dL (3.7-7.4)
[2024-11-02 14:26] LABS: Creatinine,Urine Random 219.7 mg/dL; Protein/Creatinine Ratio,Urine 0.05
[2024-11-02] MEDS: LACTATED RINGERS 1,000 ML IV SCH (15:33)
[2024-11-02] MEDS: ACETAMINOPHEN TAB 500 MG TAB PO SCH (18:43)
[2024-11-02] MEDS: KETOROLAC 15 MG/ML 1 ML VIAL IVP PRN (18:44)
[2024-11-02] MEDS: SENNOSIDES-DOCUSATE SODIUM 1 EACH TAB PO SCH (19:59)
[2024-11-02] MEDS: diphenhydrAMINE 25 MG CAP PO PRN (19:59)
[2024-11-02] MEDS: LABETALOL 100 MG TAB PO SCH (20:46)
[2024-11-02] MEDS: ONDANSETRON 4 MG/2 ML VIAL IVP PRN (21:07)
[2024-11-02] MEDS: LABETALOL 100 MG TAB PO STA (23:19)
[2024-11-03 07:17] LABS: Basophils % (A) 0 %; Eosinophils % (A) 0 %; HCT 31.8 % (34.0-46.0); HGB 10.1 gm/dL (11.4-16.0); Hypochromasia Slight; Lymphocytes % (A) 23 %; MCH 25.4 pg (25.0-35.0); MCHC 31.9 g/dL (31.0-37.0); MCV 79.7 fL (80.0-100.0); Mean Platelet Volume 10.8; Monocytes # (A) 0.4 k/uL (0-1.0); Monocytes % (A) 4 %; Neutrophils % (A) 70 %; Platelet Count 188 k/uL (150-450); RBC 3.99 m/uL (3.80-5.40); RDW 14.4 % (11.5-15.5); WBC 8.5 k/uL (3.8-10.6)
--- NOTE | 2024-11-03 07:27 | P.PN ---
Progress Note - Text Adequate analgesia. No anesthetic complication.
--- NOTE | 2024-11-03 08:52 | P.PNOBGPC ---
Subjective - Subjective Patient reports: Reports appetite normal, Reports voiding normally, Reports pain well controlled, Reports ambulating normally : doing well, in NICU (On antibiotic prophylaxis and treatment for transient tachypnea of the .) Objective - Vital Signs Latest vital signs: Vital Signs Temp Pulse Resp BP Pulse Ox 11/03/24 08:00 98.2 F 85 16 127/85 99 11/03/24 04:00 97.6 F 97 18 124/78 97 11/02/24 20:00 98.0 F 75 16 155/84 98 11/02/24 18:37 98 11/02/24 17:51 98.0 F 87 18 128/74 98 11/02/24 17:39 99 11/02/24 17:00 99 11/02/24 15:29 98.2 F 68 18 132/72 97 11/02/24 15:06 58 L 18 143/78 97 11/02/24 14:36 56 L 18 136/81 100 11/02/24 14:06 58 L 18 137/77 11/02/24 13:51 58 L 18 137/72 97 11/02/24 13:38 66 18 115/60 95 11/02/24 13:23 97.3 F L 69 18 122/70 98 11/02/24 13:08 96.5 F L 63 18 111/59 98 11/02/24 10:16 97.5 F L 105 H 16 148/92 98 Intake and Output 11/02/24 11/03/24 11/03/24 22:59 06:59 14:59 Output Total 200 400 300 Balance -200 -400 -300 Output: Urine 200 400 300 Uretheral (Hand) 100 Other: # Voids 1 - Exam Extremities: Present: normal Abdomen: Present: normal appearance, soft. Absent: distention, tenderness Incision: Present: normal, dry, intact Uterus: Present: normal, firm (Uterine fundus is tonic and minimally tender below the umbilicus.) - Labs Labs: Abnormal Lab Results - Last 24 Hours (Table) 11/02/24 11/02/24 11/02/24 Range/Units 10:34 10:34 10:34 Hgb 11.0 L (11.4-16.0) gm/dL Hct 33.0 L (34.0-46.0) % MCV 77.8 L (80.0-100.0) fL Neutrophils # 8.0 H (1.3-7.7) k/uL BUN 6 L (7-17) mg/dL Hemoglobin A1c 6.2 H (<=6.0) % 11/03/24 Range/Units 06:38 Hgb 10.1 L (11.4-16.0) gm/dL Hct 31.8 L (34.0-46.0) % MCV 79.7 L (80.0-100.0) fL Neutrophils # (1.3-7.7) k/uL BUN (7-17) mg/dL Hemoglobin A1c (<=6.0) % Assessment and Plan (1) Family planning Current Visit: Yes Status: Acute Code(s): Z30.09 - ENCOUNTER FOR OT GENERAL CNSL AND ADVICE ON CONTRACEPTION SNOMED Code(s): 740359986 (2) Previous section Current Visit: Yes Status: Acute Code(s): Z98.891 - HISTORY OF UTERINE SCAR FROM PREVIOUS SURGERY SNOMED Code(s): 664541862 (3) Term Current Visit: Yes Status: Acute Code(s): Z34.90 - ENCNTR FOR SUPRVSN OF NORMAL , UNSP, UNSP TRIMESTER SNOMED Code(s): 77798441 (4) Status post section Current Visit: Yes Status: Acute Code(s): Z98.891 - HISTORY OF UTERINE SCAR FROM PREVIOUS SURGERY SNOMED Code(s): 898358841 Plan: Continue routine and postoperative care. I would anticipate possible discharge home tomorrow pending the ongoing treatment of the . I have encouraged the patient ambulate in the hallways routinely. She does continue to require labetalol 100 mg twice daily to control blood pressure and this will continue to be monitored.
[2024-11-03] MEDS: IBUPROFEN 800 MG TAB PO SCH (08:57)
--- NOTE | 2024-11-04 11:12 | P.PNOBGPC ---
Subjective - Subjective Patient reports: Reports appetite normal, Reports voiding normally, Reports pain well controlled, Reports ambulating normally [place]: doing well, in NICU Objective - Vital Signs Latest vital signs: Vital Signs Temp Pulse Resp BP Pulse Ox 11/04/24 09:30 98.8 F 91 16 121/85 98 11/04/24 03:40 82 16 138/90 99 11/03/24 23:36 97.9 F 77 16 146/88 97 11/03/24 23:00 98.3 F 78 14 146/88 98 11/03/24 16:10 146/92 11/03/24 16:00 98.0 F 84 18 153/88 98 11/03/24 12:00 98.1 F 76 18 121/77 98 Intake and Output 11/03/24 11/04/24 11/04/24 22:59 06:59 14:59 Intake Total 960 480 Balance 960 480 Intake: Oral 960 480 Other: Voiding Method Toilet # Voids 1 1 - Exam Extremities: Present: normal Abdomen: Present: normal appearance, soft. Absent: distention, tenderness Incision: Present: normal, dry, intact Uterus: Present: normal (Uterine fundus is tonic and minimally tender below the umbilicus.), firm Assessment and Plan (1) Family planning Current Visit: Yes Status: Acute Code(s): Z30.09 - ENCOUNTER FOR OT GENERAL CNSL AND ADVICE ON CONTRACEPTION SNOMED Code(s): 817597103 (2) Previous section Current Visit: Yes Status: Acute Code(s): Z98.891 - HISTORY OF UTERINE SCAR FROM PREVIOUS SURGERY SNOMED Code(s): 362832943 (3) Term Current Visit: Yes Status: Acute Code(s): Z34.90 - ENCNTR FOR SUPRVSN OF NORMAL , UNSP, UNSP TRIMESTER SNOMED Code(s): 64913608 (4) Status post section Current Visit: Yes Status: Acute Code(s): Z98.891 - HISTORY OF UTERINE SCAR FROM PREVIOUS SURGERY SNOMED Code(s): 374059245 Plan: As the infant remains in the special care nursery for at least 1 more day, the patient will remain in the hospital until the infant is ready to go or postoperative day #4, whichever comes first. I have continued to encourage her to ambulate in the hallways routinely. She is otherwise performing all activities of daily living.
[2024-11-05 00:52] VITALS: RESP 18
--- NOTE | 2024-11-05 09:36 | P.DS ---
Providers Date of admission: 11/02/24 09:52 Expected date of discharge: 11/05/24 Attending physician: Nolberto Simon Primary care physician: Simon Sales - Discharge Diagnosis(es) (1) Status post repeat low transverse section Current Visit: Yes Status: Acute (2) Status post tubal ligation at time of delivery, current hosp Current Visit: Yes Status: Acute (3) Chronic hypertension Current Visit: Yes Status: Acute Hospital Course: Patient presented for a repeat low transverse with bilateral salpingectomy. She underwent this procedure without crepitation. Denies nausea, vomiting, chest pain, shortness of breath or calf pain. Patient will be discharged home postoperative day #3 in stable condition to follow-up with Dr. Simon in 2 weeks. Plan - Discharge Summary Discharge Rx Participant: No New Discharge Prescriptions: New Ibuprofen [Motrin] 800 mg PO Q8H #30 tab No Action Labetalol [Trandate] 100 mg PO BID Vit No.179/Iron/Folic [ Tablet] 1 tab PO DAILY Omeprazole [PriLOSEC] 10 mg PO DAILY Venlafaxine HCl [Effexor] 75 mg PO DAILY Aspirin [Adult Low Dose Aspirin EC] 81 mg PO DAILY Discharge Medication List Labetalol [Trandate] 100 mg PO BID 08/14/24 [History] Omeprazole [PriLOSEC] 10 mg PO DAILY 08/14/24 [History] Vit No.179/Iron/Folic [ Tablet] 1 tab PO DAILY 08/14/24 [History] Venlafaxine HCl [Effexor] 75 mg PO DAILY 08/14/24 [History] Aspirin [Adult Low Dose Aspirin EC] 81 mg PO DAILY 10/23/24 [History] Ibuprofen [Motrin] 800 mg PO Q8H #30 tab 11/05/24 [Rx] Follow up Appointment(s)/Referral(s): Nolberto Simon MD [STAFF PHYSICIAN] - 11/17/24 10:15 am (Post appointment 12-13-2024 at 10:15am) Discharge Disposition: HOME SELF-CARE
[2024-11-05 11:31] VITALS: BP 132/76; PULSE 74; TEMP 98.2
== END 2024-11-05 13:10 | disposition home or self-care (01) | DRG 784 ==
LOC: 4FBP 09:52
PROVIDERS: ADMIT Obstetrics & Gynecology; ATTEND Obstetrics & Gynecology
PROC: 0UB70ZZ Excision of Bilateral Fallopian Tubes, Open Approach (ICD-10-PCS; 2024-11-02)
PROC: 10D00Z1 Extraction of Products of Conception, Low, Open Approach (ICD-10-PCS; principal; 2024-11-02 12:28)
DX: O34.211 Maternal care for low transverse scar from previous cesarean delivery (principal); O10.92 Unspecified pre-existing hypertension complicating childbirth; O99.354 Diseases of the nervous system complicating childbirth; O99.344 Other mental disorders complicating childbirth; O24.420 Gestational diabetes mellitus in childbirth, diet controlled; O99.824 Streptococcus B carrier state complicating childbirth; Z30.2 Encounter for sterilization; Z37.0 Single live birth; Z3A.39 39 weeks gestation of pregnancy; O99.62 Diseases of the digestive system complicating childbirth; K21.9 Gastro-esophageal reflux disease without esophagitis; Z79.82 Long term (current) use of aspirin; Z79.899 Other long term (current) drug therapy; F32.A Depression, unspecified; F41.9 Anxiety disorder, unspecified; Z88.0 Allergy status to penicillin; G43.909 Migraine, unspecified, not intractable, without status migrainosus; Z90.49 Acquired absence of other specified parts of digestive tract
CPT/HCPCS: 82565; 82570; 82947; 83036; 84156; 84450; 84460; 84520; 84550; 85025; 86850; 86900; 86901